=== PATIENT | male | born 1950 | race Caucasian/White ===

== ENCOUNTER → 2016-10-28 | Outpatient (CLI) | payer OTHER, MEDICARE ==
[~2016-10-28] MED LIST: ALBU17IN INH; ASPI81TA85 PO; CEFT250T8 PO; DEBR6.5S4 AU; DOXY100C PO; GLIP5TAB8 PO; LISI10TA4 PO; LOVA20TA2 PO; METF1000 PO; METO25TA74 PO; MUCI30TA2 PO; NASA0.053; PRAV1TAB39 PO
[2016-10-28 11:22] LABS: MEAN CORPUSCULAR HEMOGLOBIN 30.8 pg (27.0-33.0); MEAN CORPUSCULAR HGB CONC 33.7 g/dl (32.0-36.5); MEAN CORPUSCULAR VOLUME 91.5 fl (80.0-96.0); RED CELL DISTRIBUTION WIDTH 12.2 % (11.5-14.5); WHITE BLOOD COUNT 6.9 K/mm3 (4.0-10.0)
[2016-10-28 11:55] LABS: ALBUMIN 3.9 GM/DL (3.2-5.2); ALBUMIN/GLOBULIN RATIO 1.15 (1.00-1.93); ALKALINE PHOSPHATASE 109 U/L (45-117); ALT/SGPT 46 U/L (12-78); ANION GAP 8 MEQ/L (8-16); AST/SGOT 30 U/L (15-37); BILIRUBIN,TOTAL 0.3 MG/DL (0.2-1.0); BLOOD UREA NITROGEN 20 MG/DL (7-18); CALCIUM LEVEL 8.9 MG/DL (8.8-10.2); CARBON DIOXIDE LEVEL 33 MEQ/L (21-32); CHLORIDE LEVEL 100 MEQ/L (98-107); CREATININE FOR GFR 1.14 MG/DL (0.70-1.30); FERRITIN 27 NG/ML (26-388); GLOMERULAR FILTRATION RATE > 60.0 (>49); GLUCOSE, FASTING 68 MG/DL (80-110); MAGNESIUM LEVEL 1.8 MG/DL (1.8-2.4); POTASSIUM SERUM 4.1 MEQ/L (3.5-5.1); SODIUM LEVEL 141 MEQ/L (136-145); TOTAL PROTEIN 7.3 GM/DL (6.4-8.2)
== END ==
LOC: M LAB 10:58
PROVIDERS: ATTEND Nurse Practitioner Family
DX: K21.9 Gastro-esophageal reflux disease without esophagitis (principal); I10 Essential (primary) hypertension

== ENCOUNTER → 2017-02-04 | Outpatient (CLI) | payer OTHER, MEDICARE ==
[2017-02-04 09:05] LABS: ALBUMIN/GLOBULIN RATIO 1.25 (1.00-1.93); BILIRUBIN,TOTAL 0.4 MG/DL (0.2-1.0); CALCIUM LEVEL 8.5 MG/DL (8.8-10.2); CREATININE FOR GFR 1.42 MG/DL (0.70-1.30); GLOMERULAR FILTRATION RATE 53.3 (>49); POTASSIUM SERUM 4.8 MEQ/L (3.5-5.1); TOTAL PROTEIN 7.2 GM/DL (6.4-8.2)
== END ==
LOC: M LAB 08:22
PROVIDERS: ATTEND Nurse Practitioner Family
DX: I10 Essential (primary) hypertension (principal); E78.2 Mixed hyperlipidemia; E55.9 Vitamin D deficiency, unspecified

== ENCOUNTER → 2017-08-22 | Outpatient (CLI) | payer OTHER, MEDICARE ==
[~2017-08-22] MED LIST changes: -METF1000 PO; +METF10004 PO; +METO1TAB32 PO; -METO25TA74 PO; -MUCI30TA2 PO; +MUCI30TA5 PO
[2017-08-22 11:24] LABS: ALBUMIN/GLOBULIN RATIO 1.43 (1.00-1.93); ALKALINE PHOSPHATASE 82 U/L (45-117); ALT/SGPT 21 U/L (12-78); ANION GAP 8 MEQ/L (8-16); AST/SGOT 17 U/L (7-37); BILIRUBIN,TOTAL 0.4 MG/DL (0.2-1.0); BLOOD UREA NITROGEN 18 MG/DL (7-18); CALCIUM LEVEL 9.5 MG/DL (8.8-10.2); CARBON DIOXIDE LEVEL 29 MEQ/L (21-32); CHLORIDE LEVEL 102 MEQ/L (98-107); CHOLESTEROL LEVEL 177 MG/DL (<200); CREATININE FOR GFR 1.22 MG/DL (0.70-1.30); GLOMERULAR FILTRATION RATE > 60.0 (>49); GLUCOSE, FASTING 86 MG/DL (80-110); POTASSIUM SERUM 4.8 MEQ/L (3.5-5.1); SODIUM LEVEL 139 MEQ/L (136-145); TOTAL PROTEIN 6.8 GM/DL (6.4-8.2); TRIGLYCERIDES LEVEL 141 MG/DL (<150)
== END ==
LOC: M LAB 10:00
PROVIDERS: ATTEND Nurse Practitioner Family
DX: Z12.5 Encounter for screening for malignant neoplasm of prostate (principal); I10 Essential (primary) hypertension; E78.2 Mixed hyperlipidemia; E55.9 Vitamin D deficiency, unspecified
CPT/HCPCS: 36415; 80053; 80061; 82306; G0103

== ENCOUNTER → 2017-08-22 | Outpatient (CLI) | payer MEDICARE, OTHER ==
[2017-08-29 00:06] LABS: GAD-65 AUTOANTIBODY <5.0 U/mL (0.0-5.0)
== END ==
LOC: M LAB 09:57
PROVIDERS: ATTEND Nurse Practitioner Family
DX: Z00.00 Encounter for general adult medical examination without abnormal findings (principal); E11.9 Type 2 diabetes mellitus without complications; Z12.5 Encounter for screening for malignant neoplasm of prostate
CPT/HCPCS: 36415; 80053; 80061; 82306; 83519; 84681; G0103

== ENCOUNTER → 2017-11-22 | Outpatient (REF) | payer MEDICARE, OTHER ==
[2017-11-22 12:27] LABS: ALBUMIN 4.3 GM/DL (3.2-5.2); ALBUMIN/GLOBULIN RATIO 1.39 (1.00-1.93); ALKALINE PHOSPHATASE 124 U/L (45-117); ALT/SGPT 34 U/L (12-78); ANION GAP 9 MEQ/L (8-16); AST/SGOT 26 U/L (7-37); BILIRUBIN,TOTAL 0.3 MG/DL (0.2-1.0); BLOOD UREA NITROGEN 36 MG/DL (7-18); CALCIUM LEVEL 9.5 MG/DL (8.8-10.2); CARBON DIOXIDE LEVEL 28 MEQ/L (21-32); CHLORIDE LEVEL 102 MEQ/L (98-107); CHOLESTEROL LEVEL 84 MG/DL (<200); CHOLESTEROL RISK RATIO 1.909 (<5); CREATININE FOR GFR 1.23 MG/DL (0.70-1.30); GLOMERULAR FILTRATION RATE > 60.0 (>49); GLUCOSE, FASTING 71 MG/DL (70-100); HDL CHOLESTEROL 44 MG/DL (>40); LDL CHOLESTEROL 13.4 MG/DL (<100); NON-HDL-C 40 MG/DL; POTASSIUM SERUM 4.9 MEQ/L (3.5-5.1); SODIUM LEVEL 139 MEQ/L (136-145); TOTAL PROTEIN 7.4 GM/DL (6.4-8.2); TRIGLYCERIDES LEVEL 133 MG/DL (<150)
[2017-11-22 12:30] LABS: TOTAL 25(OH) VITAMIN D 46.1 NG/ML (30.0-100.0)
== END ==
LOC: M SFHCPLAZ 09:58
DX: I10 Essential (primary) hypertension (principal); E78.2 Mixed hyperlipidemia; E55.9 Vitamin D deficiency, unspecified
CPT/HCPCS: 80053

== ENCOUNTER → 2017-12-11 | Outpatient (REF) | payer MEDICARE, OTHER ==
[2017-12-11 18:37] LABS: APPEARANCE, URINE CLEAR (CLEAR); BACTERIA, URINE AUTO NEGATIVE (NEGATIVE); BILIRUBIN, URINE AUTO NEGATIVE (NEGATIVE); BLOOD, URINE BLOOD NEGATIVE (NEGATIVE); COLOR, URINE STRAW (YELLOW); GLUCOSE, URINE (UA) AUTO 3+ mg/dL (NEGATIVE); KETONE, URINE AUTO NEGATIVE (NEGATIVE); LEUKOCYTE ESTERASE, URINE AUTO NEGATIVE (NEGATIVE); NITRITE, URINE AUTO NEGATIVE (NEGATIVE); PROTEIN, URINE AUTO NEGATIVE (NEGATIVE); RBC, URINE AUTO 0 /HPF (0-3); SPECIFIC GRAVITY URINE AUTO 1.016 (1.002-1.035); SQUAMOUS EPITHELIAL CELL UR AU 0 /HPF (0-6); UROBILINOGEN, URINE AUTO 0.2 mg/dL (0.0-2.0); WBC, URINE AUTO 0 /HPF (0-3)
== END ==
LOC: M SMT 17:18
DX: R97.20 Elevated prostate specific antigen [PSA] (principal); Z79.899 Other long term (current) drug therapy
CPT/HCPCS: 81001

== ENCOUNTER → 2018-06-21 | Outpatient (REF) | payer MEDICARE, OTHER ==
[2018-06-22 15:36] LABS: PSA % FREE 32.3 % (.); PSA FREE 1.29 ng/mL
== END ==
LOC: M SFHCPLAZ 09:49
DX: R97.20 Elevated prostate specific antigen [PSA] (principal)
CPT/HCPCS: 84154

== ENCOUNTER → 2018-08-16 | Outpatient (CLI) | payer MEDICARE, OTHER ==
[2018-08-16 11:08] LABS: ALBUMIN 4.1 GM/DL (3.2-5.2); ALBUMIN/GLOBULIN RATIO 1.32 (1.00-1.93); ALKALINE PHOSPHATASE 102 U/L (45-117); ALT/SGPT 22 U/L (12-78); ANION GAP 5 MEQ/L (8-16); AST/SGOT 17 U/L (7-37); BILIRUBIN,TOTAL 0.3 MG/DL (0.2-1.0); BLOOD UREA NITROGEN 20 MG/DL (7-18); CALCIUM LEVEL 9.7 MG/DL (8.8-10.2); CARBON DIOXIDE LEVEL 31 MEQ/L (21-32); CHLORIDE LEVEL 100 MEQ/L (98-107); CHOLESTEROL LEVEL 199 MG/DL (<200); CHOLESTEROL RISK RATIO 4.234 (<5); CREATININE FOR GFR 1.37 MG/DL (0.70-1.30); FREE T4 0.93 NG/DL (0.76-1.46); GLOMERULAR FILTRATION RATE 55.2 (>49); GLUCOSE, FASTING 147 MG/DL (70-100); HDL CHOLESTEROL 47 MG/DL (>40); LDL CHOLESTEROL 109 MG/DL (<100); NON-HDL-C 152 MG/DL; POTASSIUM SERUM 5.4 MEQ/L (3.5-5.1); SODIUM LEVEL 136 MEQ/L (136-145); TOTAL PROTEIN 7.2 GM/DL (6.4-8.2); TRIGLYCERIDES LEVEL 215 MG/DL (<150)
[2018-08-16 11:09] LABS: TOTAL 25(OH) VITAMIN D 67.3 NG/ML (30.0-100.0)
== END ==
LOC: M LAB 09:59
DX: I10 Essential (primary) hypertension (principal); Z79.899 Other long term (current) drug therapy
CPT/HCPCS: 84443

== ENCOUNTER → 2019-01-01 | Outpatient (CLI) | payer MEDICARE, OTHER ==
[~2019-01-01] MED LIST changes: -NASA0.053; +NASA0.054
--- NOTE | 2019-01-01 14:27 | REP ---
SINUSES THREE VIEWS: HISTORY: Facial pain. There is no acute fracture or bone lesion. Mucosal thickening is present in the right maxillary sinus. The remaining sinuses are clear. IMPRESSION: Right maxillary sinus mucosal thickening. Electronically Signed by Neto Garcia MD 01/01/2019 02:31 P
== END ==
LOC: M SMT 13:02
PROVIDERS: ATTEND Nurse Practitioner Family
DX: J34.89 Other specified disorders of nose and nasal sinuses (principal); R51 Headache
CPT/HCPCS: 69209; 70220; G0463

== ENCOUNTER → 2019-01-04 | Outpatient (CLI) | payer MEDICARE, OTHER ==
--- NOTE | 2019-01-04 09:14 | REP ---
Clinical: Persistent headache . Comparison: 11/23/2015 . Findings: The ventricles, sulci, and cisterns are normal in position and appearance. Gould-white differentiation is maintained. No acute intracranial hemorrhage, mass/mass effect, pathology or trauma/injury. No evidence for acute infarction. No extra-axial fluid collection. Calvarium is intact. Mild/moderate mucoperiosteal changes involving the ethmoid and right sphenoid sinuses suggests sinusitis. Impression: Normal noncontrast head CT. Mild sinusitis. No evidence for acute intracranial pathology or trauma/injury. Electronically Signed by Piotr Zafar MD 01/04/2019 09:06 A
== END ==
LOC: M RAD 08:45
PROVIDERS: ATTEND Nurse Practitioner Family
DX: G44.52 New daily persistent headache (NDPH) (principal)

== ENCOUNTER → 2019-03-28 | Outpatient (REF) | payer MEDICARE, OTHER ==
[2019-03-31 15:13] LABS: ANTINUCLEAR ANTIBODIES DIRECT Negative (Negative)
== END ==
LOC: M LABDRAWP 13:55
PROVIDERS: ATTEND Psychiatry & Neurology Neurology
DX: R51 Headache (principal)

== ENCOUNTER → 2019-04-17 | Outpatient (REF) | payer MEDICARE, OTHER ==
[2019-04-17 18:21] LABS: MAU/CREAT RATIO 9.3 MCG/MG (0.0-30.0)
== END ==
LOC: M LABDRAWP 17:20
PROVIDERS: ATTEND Nurse Practitioner Family
DX: E11.9 Type 2 diabetes mellitus without complications (principal)

== ENCOUNTER → 2019-06-25 | Outpatient (REF) | payer MEDICARE, OTHER ==
[2019-06-25 17:51] LABS: ALBUMIN 3.9 GM/DL (3.2-5.2); BILIRUBIN,TOTAL 0.2 MG/DL (0.2-1.0); CALCIUM LEVEL 9.5 MG/DL (8.8-10.2); CHOLESTEROL RISK RATIO 2.191 (<5); CREATININE FOR GFR 1.57 MG/DL (0.70-1.30); FREE T4 0.85 NG/DL (0.76-1.46); POTASSIUM SERUM 5.1 MEQ/L (3.5-5.1); THYROID STIMULATING HORMONE 3.48 uIU/ML (0.358-3.740); TOTAL PROTEIN 7.1 GM/DL (6.4-8.2)
[2019-06-25 17:53] LABS: TOTAL 25(OH) VITAMIN D 40.1 NG/ML (30.0-100.0)
[2019-06-25 18:01] LABS: CREATININE, URINE 75.8 MG/DL; MALB URINE SIEMENS 7.5 MG/L; MAU/CREAT RATIO 9.8 MCG/MG (0.0-30.0)
== END ==
LOC: M SFHCPLAZ 15:15
PROVIDERS: ATTEND Nurse Practitioner Family
DX: I10 Essential (primary) hypertension (principal); E78.2 Mixed hyperlipidemia; E55.9 Vitamin D deficiency, unspecified; R97.20 Elevated prostate specific antigen [PSA]; Z79.899 Other long term (current) drug therapy; Z79.82 Long term (current) use of aspirin

== ENCOUNTER → 2019-09-09 | Outpatient (CLI) | payer MEDICARE, OTHER ==
[2019-09-11 14:08] LABS: PSA % FREE 35.2 % (.); PSA FREE 1.62 ng/mL; PSA TOTAL 4.6 ng/mL (0.0-4.0)
== END ==
LOC: M PLALAB 15:14
PROVIDERS: ATTEND Nurse Practitioner Women's Health
DX: R97.20 Elevated prostate specific antigen [PSA] (principal)

== ENCOUNTER → 2020-01-16 | Outpatient (REF) | payer MEDICARE, OTHER ==
[2020-01-16 12:24] LABS: BASO # 0.1 10^3/uL (0.0-0.2); BASO % 1.1 % (0.0-1.0); EOS # 1.4 10^3/uL (0.0-0.5); EOS % 16.9 % (0.0-3.0); HEMATOCRIT 39.6 % (42.0-52.0); HEMOGLOBIN 12.7 g/dl (13.5-17.5); LYMPH # 1.6 10^3/uL (1.5-5.0); LYMPH % 18.6 % (24.0-44.0); MEAN CORPUSCULAR HEMOGLOBIN 29.2 pg (27.0-33.0); MEAN CORPUSCULAR HGB CONC 32.1 g/dl (32.0-36.5); MONO # 0.7 10^3/uL (0.0-0.8); MONO % 8.8 % (0.0-5.0); NEUTROPHILS # 4.6 10^3/uL (1.5-8.5); NEUTROPHILS % 54.4 % (36.0-66.0); PLATELET COUNT, AUTOMATED 314 10^3/uL (150-450); RED BLOOD COUNT 4.35 10^6/uL (4.30-6.10); WHITE BLOOD COUNT 8.4 10^3/uL (4.0-10.0)
[2020-01-16 12:47] LABS: CHOLESTEROL RISK RATIO 1.807 (<5); PROSTATIC SPECIFIC AG MONITOR 2.81 NG/ML (< 4.00)
== END ==
LOC: M PLALAB 10:03
PROVIDERS: ATTEND Nurse Practitioner Women's Health
DX: J01.01 Acute recurrent maxillary sinusitis (principal); E78.2 Mixed hyperlipidemia; R97.20 Elevated prostate specific antigen [PSA]; E55.9 Vitamin D deficiency, unspecified; Z79.899 Other long term (current) drug therapy

== ENCOUNTER 2020-02-04 17:33 | Inpatient (IN) | payer MEDICARE, OTHER ==
[~2020-02-04 17:33] MED LIST changes: -ESCI10TA2 PO; -FINA5TAB2 PO; -OMEP-221 PO; -ROSU20TA5 PO; -SULF1TAB93 PO; -VENTAER INH
[2020-02-04] MEDS ORDERED: GLUCOSE 4GM CHEW TABLET PO PRN (17:45)
[2020-02-04] MEDS ORDERED: ACETAMINOPHEN TAB 650MG DOSE (2X325MG) PO PRN (17:45)
[2020-02-04] MEDS ORDERED: DEXTROSE 50% 50 ML SYRINGE IV PRN (17:45)
[2020-02-04] MEDS ORDERED: MOM 30ML SUSPENSION UDC PO PRN (17:45)
[2020-02-04] MEDS ORDERED: MAALOX 30 ML SUSP *UDC PO PRN (17:45)
[2020-02-04] MEDS ORDERED: GLUCAGON INJ 1MG VIAL SC PRN (17:45)
[2020-02-04 18:12] VITALS: BP 102/60
--- NOTE | 2020-02-04 19:17 | HPEPDOC ---
[facility] Medical History & Physical Date of Admission February 04, 2020 Date of Service: February 04, 2020 Attending Physician: LOLLY KRAMER MD History and Physical CHIEF COMPLAINT: Kidney injury, sent by PCP HISTORY OF PRESENT ILLNESS: Zhao Isabel is a 69-year-old male who presents today for direct admission after being seen today by Dr. Roberson at the [facility] clinic for ongoing upper respiratory symptoms and cough and was found to have acute kidney injury. He had been previously diagnosed with sinusitis about 2 weeks ago and started on Bactrim. He had follow-up today to discuss his ongoing symptoms. No new antibiotics were ordered and a chest x-ray was negative for pneumonia. Lab revealed MISBAH and hyperkalemia. His upper respiratory symptoms have been going on for at least the past month. He reports a cough that is only mildly productive of clear sputum. He also reports sinus pressure and bilateral maxillary sinuses, intermittent headaches, postnasal drip. He denies any fevers, chills, sweats, shortness of breath. He states he has never had an issue with his kidneys before that he is aware of. PAST MEDICAL HISTORY: 1. Diabetes Mellitus 2. HTN 3. HLD 4. CAD 5. SVT s/p ablation 6. GEMMA 7. GERD PAST SURGICAL HISTORY: 1. Appendectomy 2. Cardiac ablation 3. Prostate biopsy SOCIAL HISTORY: Never smoker, no alcohol use, no IV drug use. FAMILY HISTORY: Father: [place], heart disease Mother: diabetes mellitus ALLERGIES: Please see below. REVIEW OF SYSTEMS: CONSTITUTIONAL: Denies fevers, chills, night sweats, fatigue, unexpected change in weight. HEENT: Positive as noted in HPI. Denies change in vision, change in hearing. CARDIOVASCULAR: Denies chest pain, palpitations, shortness of breath, lightheadedness. RESPIRATORY: Endorses cough as noted in HPI. Denies dyspnea, wheezing. GASTROINTESTINAL: Denies nausea, vomiting, abdominal pain, diarrhea, constipation, blood in stool. GENITOURINARY: Denies dysuria, urinary frequency, urinary urgency. SKIN: Denies rash, lesions. MUSCULOSKELETAL: She is going denies new or worsening joint pains. NEUROLOGICAL: Denies headache, dizziness, weakness. PSYCHIATRIC: Denies change in mood. HOME MEDICATIONS: Please see below. PHYSICAL EXAMINATION: VITAL SIGNS: See below GENERAL: Alert, comfortable, in no acute distress HEENT: Normocephalic, atraumatic, PERRLA, EOMI, moist mucous membranes. Mild tenderness in bilateral maxillary sinuses. No tenderness over the frontal sinuses. Cobblestoning noted in the posterior pharynx, without exudates. NECK: Supple, trachea midline, no lymphadenopathy, no JVD CARDIOVASCULAR: Regular rate and rhythm, normal S1 and S2. No murmurs, rubs, or gallops RESPIRATORY: Rhonchorous upper airway sounds noted bilaterally without wheezing or rales. Remaining lung delacruz are clear to auscultation. ABDOMEN: Soft, nontender, nondistended, bowel sounds present EXTREMITIES: No cyanosis or edema. SKIN: No rash noted NEUROLOGIC: Alert and oriented 3 to person, place and time. No focal deficits appreciated PSYCHIATRIC: Mood and affect appropriate LABORATORY DATA: See below. ASSESSMENT: 69 year old male who presented for direct admission to the hospital for suspected drug-induced MISBAH secondary to Bactrim PLAN: 1. MISBAH secondary to AIN from Bactrim - discontinue Bactrim, hold home lisinopril, metformin, and omeprazole - recheck BMP now, EKG due to electrolyte imbalance - veltassa for hyperkalemia of 5.8 - hyponatremia, Na level 130 - IV fluids overnight, reassess based on morning labs 2. Sinusitis - discontinue bactrim due to above - consider treatment with doxycycline 3. Diabetes mellitus - hold home metformin and glipizide while inpatient - sliding scale insulin achs, hypoglycemia protocol 4. Hypertension - hold home lisinopril in the setting of MISBAH - if hypertensive, will treat 5. GERD - hold home omeprazole in the setting of MISBAH DVT prophylaxis: sc heparin GI prophylaxis: not indicated Disposition: inpatient PCU pending clinical improvement. Attending attestation: I evaluated and examined the patient in person; I discussed the care with Resident in detail and agree with the plan above. Home Medications Scheduled Aspirin (Aspir 81) 81 Mg Tab, 81 MG PO DAILY Escitalopram Oxalate (Escitalopram Oxalate) 10 Mg Tablet, 10 MG PO DAILY Finasteride (Finasteride) 5 Mg Tablet, 5 MG PO DAILY Glipizide (Glipizide) 5 Mg Tab, 5 MG PO BID Lisinopril (Lisinopril) 10 Mg Tab, 10 MG PO DAILY Metformin HCl (Metformin HCl) 1,000 Mg Tab, 1,000 MG PO BIDWM Rosuvastatin Calcium (Rosuvastatin Calcium) 20 Mg Tablet, 20 MG PO QHS Scheduled PRN Omeprazole (Omeprazole) 40 Mg Capsule.dr, 40 MG PO DAILY PRN for HEARTBURN/INDIGESTION Allergies Coded Allergies: Penicillins (Verified Allergy, Intermediate, RASH, 02/04/20) A-FIB/CHADSVASC A-FIB History Current/History of A-Fib/PAF?: No ABENA FARAH D.O. February 04, 2020 18:43 LOLLY KRAMER MD February 06, 2020 16:15
[2020-02-04 20:00] VITALS: BP 104/54
[2020-02-04] MEDS ORDERED: PATIROMER SORBITEX CALCIUM 8.4 GM POWDER PACKET (VELTASSA) PO ONE (20:00)
[2020-02-04] MEDS: NS 1,000 ML IV SCH (20:08)
[2020-02-04 20:21] LABS: CALCIUM LEVEL 7.8 MG/DL (8.8-10.2); CREATININE FOR GFR 2.5 MG/DL (0.70-1.30); GLOMERULAR FILTRATION RATE 27.5 (>49); POTASSIUM SERUM 5.8 MEQ/L (3.5-5.1)
[2020-02-04] MEDS: HumaLOG INSULIN (NovoLOG) PER UNIT SC SCH (20:21)
[2020-02-04] MEDS: HEPARIN SOD (PORCINE) 5000UNITS/ML VIAL (J1644 PER 1000UNITS) SC SCH (22:42)
[2020-02-04 23:00] LABS: TROPONIN I 0.22 NG/ML (< 0.10)
[2020-02-04 23:05] LABS: THYROID STIMULATING HORMONE 3.02 uIU/ML (0.358-3.740)
[2020-02-04 23:37] LABS: CREATININE FOR GFR 2.24 MG/DL (0.70-1.30); GLOMERULAR FILTRATION RATE 31.2 (>49); POTASSIUM SERUM 5.3 MEQ/L (3.5-5.1)
[2020-02-05] VITALS (7 sets, daily range): BP systolic 100–148; BP diastolic 57–68
[2020-02-05] MEDS ORDERED: ASPIRIN 81 MG CHEW TABLET PO ONE
[2020-02-05] MEDS ORDERED: SULF1TAB93 PO (00:22)
[2020-02-05] MEDS ORDERED: VENTAER INH (00:22)
[2020-02-05] MEDS ORDERED: ESCI10TA2 PO (00:22)
[2020-02-05] MEDS ORDERED: ROSU20TA5 PO (00:22)
[2020-02-05] MEDS ORDERED: FINA5TAB2 PO (00:22)
[2020-02-05] MEDS ORDERED: OMEP-221 PO (00:38)
[2020-02-05 04:47] LABS: HEMATOCRIT 30.2 % (42.0-52.0); HEMOGLOBIN 10.1 g/dl (13.5-17.5); MEAN CORPUSCULAR HEMOGLOBIN 29.2 pg (27.0-33.0); MEAN CORPUSCULAR HGB CONC 33.4 g/dl (32.0-36.5); MEAN CORPUSCULAR VOLUME 87.3 fl (80.0-96.0); PLATELET COUNT, AUTOMATED 241 10^3/uL (150-450); RED BLOOD COUNT 3.46 10^6/uL (4.30-6.10); WHITE BLOOD COUNT 7.2 10^3/uL (4.0-10.0)
[2020-02-05 05:20] LABS: CALCIUM LEVEL 8.5 MG/DL (8.8-10.2); GLOMERULAR FILTRATION RATE 35.5 (>49); TROPONIN I 0.28 NG/ML (< 0.10)
[2020-02-05] MEDS: NS 1,000 ML IV SCH (06:12)
[2020-02-05] MEDS: HEPARIN SOD (PORCINE) 5000UNITS/ML VIAL (J1644 PER 1000UNITS) SC SCH ×3 (06:15→20:59)
[2020-02-05] MEDS: HumaLOG INSULIN (NovoLOG) PER UNIT SC SCH ×4 (07:53→20:31)
[2020-02-05] MEDS: FINASTERIDE 5 MG TAB PO SCH (08:59)
[2020-02-05] MEDS: ESCITALOPRAM OXALATE 10 MG TAB (LEXAPRO) PO SCH (08:59)
[2020-02-05] MEDS: FLUTICASONE PROP 0.05% NASAL SPRAY 16 GM (FLONASE) NARES SCH (09:00)
--- NOTE | 2020-02-05 11:17 | IPNPDOC ---
Text Note Date of Service The patient was seen on 02/05/20. NOTE SUBJECTIVE: Patient states he is feeling about the same today as yesterday. He continues to have sinus pressure and drainage. No fevers/chills. He is urinating without difficulty. OBJECTIVE: PHYSICAL EXAMINATION: VITAL SIGNS: See below GENERAL: Alert, comfortable, in no acute distress HEENT: Normocephalic, atraumatic, PERRLA, EOMI, moist mucous membranes. Mild tenderness in bilateral maxillary sinuses. No tenderness over the frontal sinuses. Cobblestoning noted in the posterior pharynx, without exudates. NECK: Supple, trachea midline, no lymphadenopathy, no JVD CARDIOVASCULAR: Regular rate and rhythm, normal S1 and S2. No murmurs, rubs, or gallops RESPIRATORY: Rhonchorous upper airway sounds noted bilaterally without wheezing or rales. Remaining lung delacruz are clear to auscultation. ABDOMEN: Soft, nontender, nondistended, bowel sounds present EXTREMITIES: No cyanosis or edema. SKIN: No rash noted NEUROLOGIC: Alert and oriented 3 to person, place and time. No focal deficits appreciated PSYCHIATRIC: Mood and affect appropriate ASSESSMENT: 69 year old male who presented for direct admission to the hospital for suspected drug-induced MISBAH secondary to Bactrim PLAN: # MISBAH secondary to AIN from Bactrim - discontinue Bactrim, hold home lisinopril, metformin, and omeprazole - Cr improving, continue to monitor daily. d/c IV fluids, consider restarting if Cr increases again - given one dose of veltassa on admission for hyperkalemia, improved - continue telemetry # Cardiac arrhythmia - admission EKG reveals first degree AV block, hx of SVT s/p ablation, stable from 2015 EKG in [facility] - overnight he went into a second degree AV block, type 1 vs type 2 - changes likely due to electrolyte imbalance vs. worsening of underlying arrhythmia - troponin elevated, trend shows plateau. 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 VS,Fishbone, I+O VS, Fishbone, I+O Laboratory Tests 02/04/20 19:54 02/04/20 22:20 02/05/20 04:25 Vital Signs Date Time Temp Pulse Resp B/P (MAP) Pulse Ox O2 Delivery O2 Flow Rate FiO2 02/05/20 08:00 98.5 82 20 131/64 (86) 95 Room Air I&O- Last 24 Hours up to 6 AM 02/05/20 06:00 Intake Total 950 ml Output Total 1850 ml Balance -900 ml ABENA FARAH D.O. February 05, 2020 11:17
[2020-02-05] MEDS: IPRATROPIUM 0.5MG/ALBUTEROL 2.5MG INH SOL UD 3ML (DUONEB)(J7620) NEB SCH ×2 (13:56→19:30)
--- NOTE | 2020-02-05 21:03 | ECGEPIP ---
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 CONSIDER PRIOR INFERIOR INFARCT Compared to the 4 tracings done in 2014. In 1 of them there was one episode of Mobitz 1 second-degree AV block Electronically Signed on 02-05-2020 21:02:46 EDT by Manpreet Camara
--- NOTE | 2020-02-05 21:07 | ECGEPIP ---
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 CONSIDER PRIOR INFERIOR INFARCT INTRAVENTRICULAR CONDUCTION DELAY Compared to the 4 tracings done in 2014. In 1 of them there was one episode of Mobitz 1 second-degree AV block HEART RATE IS NOW SLOWER Electronically Signed on 02-05-2020 21:07:02 EDT by Manpreet Camara
--- NOTE | 2020-02-05 21:19 | ECHO ---
DATE OF PROCEDURE: 02/05/2020 Date of : 1950 Age: 69 Gender: Male Height: 68 inches Weight: 154 pounds Body surface area: 1.83 meters squared Inpatient: Progressive care unit (PCU), room 3222 REFERRING PHYSICIAN: Dr. Dayna Mendoza INDICATION: Cardiac dysrhythmias. MEASUREMENTS: 2D Measurements: RV: 4.0 cm LV: 4.2 cm Septum: 1.2 cm Posterior wall: 1.2 cm Aortic root: 3.6 cm LA: 4.2 cm LVEF: 75% Doppler Measurements: AV: 1.3 meters per second LVOT: 0.98 meters per second LVOT diameter: 2.0 cm MV-E: 113, A: 102, EA ratio: 1.1 Early mitral deceleration time: 250 milliseconds E prime medial: 7.7, A prime medial: 10, E prime lateral: 7.7. Average E/E prime ratio: 14.7/pulmonary capillary wedge pressure: 20 mmHg. PV: 0.9 meters per second Pulmonary artery acceleration time: 137 milliseconds RVSP: 31 mmHg IVC: 1.7 cm COMMENTS: Normal sinus rhythm without intraventricular conduction disturbance. M-mode and two-dimensional echocardiography was performed with pulsed, continuous wave, color flow and tissue Doppler studies. Borderline concentric left ventricular hypertrophy with hyperkinetic wall motion. Mildly dilated left atrium with grade 2 left ventricular (LV) diastolic dysfunction and elevated estimated mean left atrial pressure. Normal right heart chamber sizes and motion with Doppler evidence of borderline pulmonary hypertension. Normal inferior vena cava (IVC) size and collapse against an elevated central venous pressure. Normal aortic dimensions. Slightly thickened aortic cusps with normal cusp separation and no insufficiency. Mildly thickened mitral valvular apparatus without inflow tract obstruction but very mild to mild mitral insufficiency. Normal appearing tricuspid valve with very mild insufficiency. No apparent intracardiac mass or pericardial effusion.
[2020-02-06] MEDS: IPRATROPIUM 0.5MG/ALBUTEROL 2.5MG INH SOL UD 3ML (DUONEB)(J7620) NEB SCH ×4 (01:05→19:41)
[2020-02-06] MEDS: HEPARIN SOD (PORCINE) 5000UNITS/ML VIAL (J1644 PER 1000UNITS) SC SCH ×3 (05:17→21:03)
[2020-02-06 06:00] VITALS: BP 130/54
[2020-02-06 06:06] LABS: HEMATOCRIT 31.1 % (42.0-52.0); HEMOGLOBIN 10.5 g/dl (13.5-17.5); MEAN CORPUSCULAR HEMOGLOBIN 29.2 pg (27.0-33.0); MEAN CORPUSCULAR HGB CONC 33.8 g/dl (32.0-36.5); MEAN CORPUSCULAR VOLUME 86.6 fl (80.0-96.0); PLATELET COUNT, AUTOMATED 283 10^3/uL (150-450); RED BLOOD COUNT 3.59 10^6/uL (4.30-6.10)
[2020-02-06 06:28] LABS: CALCIUM LEVEL 8.6 MG/DL (8.8-10.2); CREATININE FOR GFR 1.45 MG/DL (0.70-1.30); GLOMERULAR FILTRATION RATE 51.5 (>49); POTASSIUM SERUM 5.6 MEQ/L (3.5-5.1)
[2020-02-06] MEDS: ESCITALOPRAM OXALATE 10 MG TAB (LEXAPRO) PO SCH (08:32)
[2020-02-06] MEDS: FINASTERIDE 5 MG TAB PO SCH (08:32)
[2020-02-06] MEDS: HumaLOG INSULIN (NovoLOG) PER UNIT SC SCH ×4 (08:33→20:57)
[2020-02-06] MEDS: FLUTICASONE PROP 0.05% NASAL SPRAY 16 GM (FLONASE) NARES SCH (08:34)
[2020-02-06] MEDS ORDERED: PATIROMER SORBITEX CALCIUM 8.4 GM POWDER PACKET (VELTASSA) PO ONE (11:00)
[2020-02-06 12:46] LABS: CALCIUM LEVEL 8.8 MG/DL (8.8-10.2); CREATININE FOR GFR 1.33 MG/DL (0.70-1.30); GLOMERULAR FILTRATION RATE 56.9 (>49); POTASSIUM SERUM 5.3 MEQ/L (3.5-5.1)
[2020-02-06 14:00] VITALS: BP 130/60
--- NOTE | 2020-02-06 17:00 | IPNPDOC ---
Text Note Date of Service The patient was seen on 02/06/20. NOTE SUBJECTIVE: Patient states he is feeling better this morning. He states his sinus pressure and drainage is improved. He denies fevers/chills. No trouble urinating or dark urine. OBJECTIVE: PHYSICAL EXAMINATION: VITAL SIGNS: See below GENERAL: Alert, comfortable, in no acute distress HEENT: Normocephalic, atraumatic, PERRLA, EOMI, moist mucous membranes. Mild tenderness in bilateral maxillary sinuses. No tenderness over the frontal sinuses. Cobblestoning noted in the posterior pharynx, without exudates. NECK: Supple, trachea midline, no lymphadenopathy, no JVD CARDIOVASCULAR: Regular rate and rhythm, normal S1 and S2. No murmurs, rubs, or gallops RESPIRATORY: Rhonchorous upper airway sounds noted bilaterally without wheezing or rales. Remaining lung delacruz are clear to auscultation. ABDOMEN: Soft, nontender, nondistended, bowel sounds present EXTREMITIES: No cyanosis or edema. SKIN: No rash noted NEUROLOGIC: Alert and oriented 3 to person, place and time. No focal deficits appreciated PSYCHIATRIC: Mood and affect appropriate ASSESSMENT: 69 year old male who presented for direct admission to the hospital for suspected drug-induced MISBAH secondary to Bactrim PLAN: # MISBAH secondary to AIN from Bactrim - discontinue Bactrim, hold home lisinopril, metformin, and omeprazole - Cr improving, continue to monitor daily. s/p IV fluids, consider restarting if Cr increases again - given one dose of veltassa on admission for hyperkalemia, improved. give a second dose today due to recurrent hyperkalemia. # Cardiac arrhythmia - admission EKG reveals first degree AV block, hx of SVT s/p ablation, stable from 2014 EKG in [facility] - overnight he went into a second degree AV block, type 1 vs type 2 - changes likely due to electrolyte imbalance vs. worsening of underlying arrhythmia - troponin elevated, trend shows plateau. echocardiogram shows grade 2 diastolic dysfunction. 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 viral vs. bacterial - discontinue Bactrim due to above - symptoms improving with flonase spray # Diabetes mellitus - hold home metformin and glipizide while inpatient - sliding scale insulin achs, hypoglycemia protocol # Hypertension - hold home lisinopril in the setting of MISBAH # GERD - hold home omeprazole in the setting of MISBAH DVT prophylaxis: sc heparin GI prophylaxis: not indicated Disposition: likely d/c home in the next 24-48 hours VS,Sumeetbone, I+O VS, Fishbone, I+O Laboratory Tests 02/06/20 05:22 02/06/20 11:51 Vital Signs Date Time Temp Pulse Resp B/P (MAP) Pulse Ox O2 Delivery O2 Flow Rate FiO2 02/06/20 14:00 98.1 78 16 130/60 (83) 94 Room Air I&O- Last 24 Hours up to 6 AM 02/06/20 06:00 Intake Total 2340 ml Output Total 1950 ml Balance 390 ml ABENA FARAH D.O. February 06, 2020 17:00
[2020-02-06 22:00] VITALS: BP 133/66
[2020-02-07] MEDS: IPRATROPIUM 0.5MG/ALBUTEROL 2.5MG INH SOL UD 3ML (DUONEB)(J7620) NEB SCH ×4 (00:30→19:44)
[2020-02-07] MEDS: HEPARIN SOD (PORCINE) 5000UNITS/ML VIAL (J1644 PER 1000UNITS) SC SCH ×3 (05:51→21:39)
[2020-02-07 06:00] VITALS: BP 135/65
[2020-02-07 06:56] LABS: HEMATOCRIT 33.4 % (42.0-52.0); HEMOGLOBIN 10.9 g/dl (13.5-17.5); MEAN CORPUSCULAR HGB CONC 32.6 g/dl (32.0-36.5); MEAN CORPUSCULAR VOLUME 88.8 fl (80.0-96.0); PLATELET COUNT, AUTOMATED 366 10^3/uL (150-450); RED BLOOD COUNT 3.76 10^6/uL (4.30-6.10); WHITE BLOOD COUNT 6.3 10^3/uL (4.0-10.0)
[2020-02-07 07:14] LABS: BLOOD UREA NITROGEN 25 MG/DL (7-18); CALCIUM LEVEL 8.8 MG/DL (8.8-10.2); CARBON DIOXIDE LEVEL 28 MEQ/L (21-32); CHLORIDE LEVEL 104 MEQ/L (98-107); CREATININE FOR GFR 1.18 MG/DL (0.70-1.30); GLOMERULAR FILTRATION RATE > 60.0 (>49); GLUCOSE, FASTING 154 MG/DL (70-100); POTASSIUM SERUM 5.4 MEQ/L (3.5-5.1); SODIUM LEVEL 136 MEQ/L (136-145)
[2020-02-07] MEDS: FLUTICASONE PROP 0.05% NASAL SPRAY 16 GM (FLONASE) NARES SCH (08:44)
[2020-02-07] MEDS: ESCITALOPRAM OXALATE 10 MG TAB (LEXAPRO) PO SCH (08:44)
[2020-02-07] MEDS: FINASTERIDE 5 MG TAB PO SCH (08:44)
[2020-02-07] MEDS: HumaLOG INSULIN (NovoLOG) PER UNIT SC SCH ×4 (08:45→21:40)
[2020-02-07] MEDS ORDERED: PATIROMER SORBITEX CALCIUM 8.4 GM POWDER PACKET (VELTASSA) PO ONE (12:00)
[2020-02-07 14:00] VITALS: BP 146/65
--- NOTE | 2020-02-07 15:08 | IPNPDOC ---
Text Note Date of Service The patient was seen on 02/07/20. NOTE SUBJECTIVE: Patient states he is feeling well this morning. He has not had any sinus pressure or congestion, no fevers/chills. No dark urine or trouble urinating. OBJECTIVE: PHYSICAL EXAMINATION: VITAL SIGNS: See below GENERAL: Alert, comfortable, in no acute distress HEENT: Normocephalic, atraumatic, PERRLA, EOMI, moist mucous membranes. Mild tenderness in bilateral maxillary sinuses. No tenderness over the frontal sinuses. Cobblestoning noted in the posterior pharynx, without exudates. NECK: Supple, trachea midline, no lymphadenopathy, no JVD CARDIOVASCULAR: Regular rate and rhythm, normal S1 and S2. No murmurs, rubs, or gallops RESPIRATORY: Rhonchorous upper airway sounds noted bilaterally without wheezing or rales. Remaining lung delacruz are clear to auscultation. ABDOMEN: Soft, nontender, nondistended, bowel sounds present EXTREMITIES: No cyanosis or edema. SKIN: No rash noted NEUROLOGIC: Alert and oriented 3 to person, place and time. No focal deficits appreciated PSYCHIATRIC: Mood and affect appropriate ASSESSMENT: 69 year old male who presented for direct admission to the hospital for suspected drug-induced MISBAH secondary to Bactrim PLAN: # MISBAH secondary to AIN from Bactrim - discontinue Bactrim, hold home lisinopril, metformin, and omeprazole - Cr improving, continue to monitor daily. s/p IV fluids, consider restarting if Cr increases again - given one dose of veltassa on admission for hyperkalemia, improved. give two subsequent daily doses due to recurrent hyperkalemia. # Cardiac arrhythmia - admission EKG reveals first degree AV block, hx of SVT s/p ablation, stable from 2014 EKG in [facility] - overnight he went into a second degree AV block, type 1 vs type 2 - changes likely due to electrolyte imbalance vs. worsening of underlying ar rhythmia - troponin elevated, trend shows plateau. echocardiogram shows grade 2 diastolic dysfunction. 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 viral vs. bacterial - discontinue Bactrim due to above - symptoms improving with flonase spray # Diabetes mellitus - hold home metformin and glipizide while inpatient - sliding scale insulin achs, hypoglycemia protocol # Hypertension - hold home lisinopril in the setting of MISBAH # GERD - hold home omeprazole in the setting of MISBAH DVT prophylaxis: sc heparin GI prophylaxis: not indicated Disposition: likely d/c home in the next 24-48 hours VS,Norrise, I+O VS, Fishbone, I+O Laboratory Tests 02/07/20 05:57 02/07/20 13:54 Vital Signs Date Time Temp Pulse Resp B/P (MAP) Pulse Ox O2 Delivery O2 Flow Rate FiO2 02/07/20 06:00 98.5 66 18 135/65 (88) 94 Room Air l I&O- Last 24 Hours up to 6 AM 02/07/20 06:00 Intake Total 3290 ml Balance 3290 ml ABENA FARAH D.O. February 07, 2020 15:08
[2020-02-07] MEDS ORDERED: IPRATROPIUM 0.5MG/ALBUTEROL 2.5MG INH SOL UD 3ML (DUONEB)(J7620) NEB PRN (18:15)
[2020-02-07 22:00] VITALS: BP 124/88
[2020-02-08] MEDS ORDERED: IPRATROPIUM 0.5MG/ALBUTEROL 2.5MG INH SOL UD 3ML (DUONEB)(J7620) NEB PRN (00:15)
[2020-02-08] MEDS: IPRATROPIUM 0.5MG/ALBUTEROL 2.5MG INH SOL UD 3ML (DUONEB)(J7620) NEB SCH ×2 (01:03→07:56)
[2020-02-08] MEDS: HEPARIN SOD (PORCINE) 5000UNITS/ML VIAL (J1644 PER 1000UNITS) SC SCH (05:42)
[2020-02-08 06:00] VITALS: BP 133/82
[2020-02-08 06:41] LABS: HEMATOCRIT 34.3 % (42.0-52.0); HEMOGLOBIN 11.6 g/dl (13.5-17.5); MEAN CORPUSCULAR HEMOGLOBIN 29.6 pg (27.0-33.0); MEAN CORPUSCULAR HGB CONC 33.8 g/dl (32.0-36.5); MEAN CORPUSCULAR VOLUME 87.5 fl (80.0-96.0); PLATELET COUNT, AUTOMATED 446 10^3/uL (150-450); RED BLOOD COUNT 3.92 10^6/uL (4.30-6.10); WHITE BLOOD COUNT 7.9 10^3/uL (4.0-10.0)
[2020-02-08 07:09] LABS: BLOOD UREA NITROGEN 28 MG/DL (7-18); CALCIUM LEVEL 8.7 MG/DL (8.8-10.2); CARBON DIOXIDE LEVEL 28 MEQ/L (21-32); CHLORIDE LEVEL 104 MEQ/L (98-107); CREATININE FOR GFR 1.21 MG/DL (0.70-1.30); GLOMERULAR FILTRATION RATE > 60.0 (>49); GLUCOSE, FASTING 134 MG/DL (70-100); POTASSIUM SERUM 5.3 MEQ/L (3.5-5.1); SODIUM LEVEL 137 MEQ/L (136-145)
[2020-02-08] MEDS: FINASTERIDE 5 MG TAB PO SCH (08:29)
[2020-02-08] MEDS: ESCITALOPRAM OXALATE 10 MG TAB (LEXAPRO) PO SCH (08:29)
[2020-02-08] MEDS: FLUTICASONE PROP 0.05% NASAL SPRAY 16 GM (FLONASE) NARES SCH (08:30)
[2020-02-08] MEDS: HumaLOG INSULIN (NovoLOG) PER UNIT SC SCH (08:30)
--- NOTE | 2020-02-08 11:30 | DS.PDOC ---
Discharge Summary General Date of Admission February 04, 2020 at 17:36 Date of Discharge 02/08/20 Attending Physician: LOLLY KRAMER MD Discharge Summary PROCEDURES PERFORMED DURING STAY: None. ADMITTING DIAGNOSES: 1. Acute kidney injury, hyperkalemia. DISCHARGE DIAGNOSES: 1. Acute kidney injury, hyperkalemia. COMPLICATIONS/CHIEF COMPLAINT: Sea,Hyperkalemia. HISTORY OF PRESENT ILLNESS: 69-year-old male was admitted for acute kidney injury and hyperkalemia secondary to Bactrim toxicity. Patient was treated with Bactrim for 10-14 days prior to arrival for an upper respiratory tract infection. Patient was treated with IV hydration and nephrotoxic medications were held with resolution of acute kidney injury. Patient was given Patiromer with improvement in hyperkalemia, continues to have persistent slight elevation in potassium, recheck today in EDTA free tubing and potassium is 4.9. Patient's lisinopril has been discontinued, will be discharged with close outpatient follo w-up with primary care physician and control panel operator crude unit. Patient is given a prescription for repeat BMP in 3-5 days. Patient is agreeable to this plan, hemodynamically stable for discharge at this time. HOSPITAL COURSE: As above. DISCHARGE MEDICATIONS: Please see below. ALLERGIES: Please see below. PHYSICAL EXAMINATION: VITAL SIGNS: Please see below. GENERAL: No distress HEENT: Normocephalic, atraumatic, moist mucous membranes NECK: Supple CARDIOVASCULAR EXAMINATION: S1, S2, no murmurs RESPIRATORY EXAMINATION: Clear to auscultation, no wheezing ABDOMINAL EXAMINATION: Soft, nontender, nondistended, positive bowel sounds EXTREMITIES: Range of motion intact SKIN: No rash NEUROLOGICAL EXAMINATION: Alert and oriented 3, no focal deficits PSYCHIATRIC EXAMINATION: Calm and cooperative LABORATORY DATA: Please see below. PROGNOSIS: Fair ACTIVITY: As tolerated. DIET: Cardiac DISCHARGE PLAN: Follow with PCP and control panel operator crude unit DISPOSITION: Home. DISCHARGE INSTRUCTIONS: 1. As above. DISCHARGE CONDITION: Stable. TIME SPENT ON DISCHARGE: Greater than 26 minutes. Vital Signs/I&Os Vital Signs Date Time Temp Pulse Resp B/P (MAP) Pulse Ox O2 Delivery O2 Flow Rate FiO2 02/08/20 06:00 99.0 69 16 133/82 (99) 97 Room Air I&O- Last 24 Hours up to 6 AM 02/08/20 06:00 Intake Total 2090 ml Output Total 2975 ml Balance -885 ml Laboratory Data Labs 24H Laboratory Tests 2 02/07/20 11:28: Bedside Glucose (Misc Panel) 210H 02/07/20 16:30: Bedside Glucose (Misc Panel) 211H 02/07/20 20:53: Bedside Glucose (Misc Panel) 421H 02/08/20 06:26: Nucleated Red Blood Cells % (auto) 0.0, Anion Gap 5L, Glomerular Filtration Rate > 60.0, Calcium Level 8.7L 02/08/20 08:44: Osmolality 298 02/08/20 11:16: Bedside Glucose (Misc Panel) 211H CBC/BMP Laboratory Tests 02/07/20 13:54 02/08/20 06:26 02/08/20 08:44 FSBS Laboratory Tests Test 02/07/20 11:28 02/07/20 16:30 02/07/20 20:53 02/08/20 11:16 Range/Units Bedside Glucose (Misc Panel) 210 211 421 211 80-115 MG/DL Discharge Medications Scheduled Aspirin (Aspir 81) 81 Mg Tab, 81 MG PO DAILY, (Reported) Escitalopram Oxalate (Escitalopram Oxalate) 10 Mg Tablet, 10 MG PO DAILY, (Reported) Finasteride (Finasteride) 5 Mg Tablet, 5 MG PO DAILY, (Reported) Glipizide (Glipizide) 5 Mg Tab, 5 MG PO BID, (Reported) Lisinopril (Lisinopril) 10 Mg Tab, 10 MG PO DAILY, (Reported) Metformin HCl (Metformin HCl) 1,000 Mg Tab, 1,000 MG PO BIDWM, (Reported) Rosuvastatin Calcium (Rosuvastatin Calcium) 20 Mg Tablet, 20 MG PO QHS, (Reported) Scheduled PRN Omeprazole (Omeprazole) 40 Mg Capsule.dr, 40 MG PO DAILY PRN for HEARTBURN/INDIGESTION, (Reported) Allergies Coded Allergies: Penicillins (Verified Allergy, Intermediate, RASH, 02/04/20) LOLLY KRAMER MD February 08, 2020 11:30
[2020-02-09] MEDS ORDERED: ENOXAPARIN 40MG/0.4ML SYRINGE (J1650 PER 10MG) SC SCH (09:00)
== END 2020-02-08 12:25 | disposition home or self-care (01) | DRG 683 ==
LOC: M PCU 17:36 → M MSPAV 02-05 16:36
PROVIDERS: ADMIT Internal Medicine; ATTEND Internal Medicine
DX: N17.9 Acute kidney failure, unspecified (principal); E87.1 Hypo-osmolality and hyponatremia; T36.8X5A Adverse effect of other systemic antibiotics, initial encounter; E87.5 Hyperkalemia; J32.9 Chronic sinusitis, unspecified; Z79.899 Other long term (current) drug therapy; Z79.82 Long term (current) use of aspirin; Z88.0 Allergy status to penicillin; E11.9 Type 2 diabetes mellitus without complications; G47.33 Obstructive sleep apnea (adult) (pediatric); K21.9 Gastro-esophageal reflux disease without esophagitis; I10 Essential (primary) hypertension

== ENCOUNTER → 2020-02-04 | Outpatient (REF) | payer MEDICARE, OTHER ==
[~2020-02-04] MED LIST changes: +ESCI10TA2 PO; +FINA5TAB2 PO; +OMEP-221 PO; +ROSU20TA5 PO; +SULF1TAB93 PO; +VENTAER INH
[2020-02-04 13:25] LABS: BASO % 0.3 % (0.0-1.0); EOS # 1.2 10^3/uL (0.0-0.5); EOS % 18.9 % (0.0-3.0); HEMATOCRIT 32.5 % (42.0-52.0); LYMPH # 0.7 10^3/uL (1.5-5.0); LYMPH % 11.2 % (24.0-44.0); MEAN CORPUSCULAR HEMOGLOBIN 29.9 pg (27.0-33.0); MEAN CORPUSCULAR HGB CONC 33.8 g/dl (32.0-36.5); MEAN CORPUSCULAR VOLUME 88.3 fl (80.0-96.0); MONO # 0.9 10^3/uL (0.0-0.8); MONO % 14.5 % (0.0-5.0); NEUTROPHILS # 3.5 10^3/uL (1.5-8.5); NEUTROPHILS % 54.8 % (36.0-66.0); PLATELET COUNT, AUTOMATED 234 10^3/uL (150-450); RED BLOOD COUNT 3.68 10^6/uL (4.30-6.10); WHITE BLOOD COUNT 6.4 10^3/uL (4.0-10.0)
[2020-02-04 13:31] LABS: CALCIUM LEVEL 8.2 MG/DL (8.8-10.2); CREATININE FOR GFR 2.55 MG/DL (0.70-1.30); GLOMERULAR FILTRATION RATE 26.9 (>49); POTASSIUM SERUM 5.9 MEQ/L (3.5-5.1)
== END ==
LOC: M SFHCPLAZ 12:00
PROVIDERS: ATTEND Family Medicine
DX: R05 Cough (principal)

== ENCOUNTER → 2020-02-04 | Outpatient (CLI) | payer MEDICARE, OTHER ==
--- NOTE | 2020-02-04 16:14 | REPPI ---
REASON FOR EXAM: Cough. The latest prior for comparison is portable examination of 10/30/2014. FINDINGS: The superior mediastinal structures are midline. The cardiac silhouette is unremarkable in size, shape, and position. The diaphragmatic surfaces of the lungs are regular, and the costophrenic angles are clear. The pulmonary delacruz are clear. The imaged osseous structures are intact. IMPRESSION: There is no acute cardiopulmonary disease. The lung delacruz are hypo expanded. This crowds the basilar vascularity. Electronically Signed by Kaleb Greco DO 02/04/2020 04:30 P
== END ==
LOC: M PLAIMG 12:01
PROVIDERS: ATTEND Family Medicine
DX: R05 Cough (principal)

== ENCOUNTER → 2020-02-12 | Outpatient (CLI) | payer MEDICARE, OTHER ==
[~2020-02-12] MED LIST changes: +ESCI10TA2 PO; +FINA5TAB2 PO; +OMEP-221 PO; +ROSU20TA5 PO; +SULF1TAB93 PO; +VENTAER INH
[2020-02-12 10:02] LABS: ALBUMIN 3.4 GM/DL (3.2-5.2); ALT/SGPT 88 U/L (12-78); BILIRUBIN,TOTAL 0.4 MG/DL (0.2-1.0); BLOOD UREA NITROGEN 28 MG/DL (7-18); CALCIUM LEVEL 8.6 MG/DL (8.8-10.2); CARBON DIOXIDE LEVEL 32 MEQ/L (21-32); CHLORIDE LEVEL 103 MEQ/L (98-107); CHOLESTEROL LEVEL 76 MG/DL (<200); CHOLESTEROL RISK RATIO 2.235 (<5); CREATININE FOR GFR 1.25 MG/DL (0.70-1.30); GLOMERULAR FILTRATION RATE > 60.0 (>49); GLUCOSE, FASTING 173 MG/DL (70-100); HDL CHOLESTEROL 34 MG/DL (>40); LDL CHOLESTEROL 23 MG/DL (<100); NON-HDL-C 42 MG/DL; POTASSIUM SERUM 5.1 MEQ/L (3.5-5.1); SODIUM LEVEL 137 MEQ/L (136-145); TRIGLYCERIDES LEVEL 97 MG/DL (<150)
[2020-02-12 10:11] LABS: MALB URINE SIEMENS 35.8 MG/L; MAU/CREAT RATIO 28.8 MCG/MG (0.0-30.0)
== END ==
LOC: M LAB 08:54
PROVIDERS: ATTEND Nurse Practitioner Family
DX: E11.9 Type 2 diabetes mellitus without complications (principal)

== ENCOUNTER → 2020-02-12 | Outpatient (CLI) | payer MEDICARE, OTHER ==
[2020-02-12 11:33] LABS: BLOOD UREA NITROGEN 29 MG/DL (7-18); CALCIUM LEVEL 8.4 MG/DL (8.8-10.2); CARBON DIOXIDE LEVEL 30 MEQ/L (21-32); CHLORIDE LEVEL 102 MEQ/L (98-107); CREATININE FOR GFR 1.19 MG/DL (0.70-1.30); GLOMERULAR FILTRATION RATE > 60.0 (>49); GLUCOSE, FASTING 168 MG/DL (70-100); POTASSIUM SERUM 5.1 MEQ/L (3.5-5.1); SODIUM LEVEL 136 MEQ/L (136-145)
== END ==
LOC: M LAB 08:59
PROVIDERS: ATTEND Internal Medicine
DX: E11.9 Type 2 diabetes mellitus without complications (principal)

== ENCOUNTER → 2020-03-22 | Outpatient (REF) | payer MEDICARE, OTHER ==
[2020-03-22 13:01] LABS: ALT/SGPT 27 U/L (12-78); BILIRUBIN,TOTAL 0.4 MG/DL (0.2-1.0); BLOOD UREA NITROGEN 15 MG/DL (7-18); CALCIUM LEVEL 9.5 MG/DL (8.8-10.2); CARBON DIOXIDE LEVEL 31 MEQ/L (21-32); CHLORIDE LEVEL 101 MEQ/L (98-107); CREATININE FOR GFR 1.12 MG/DL (0.70-1.30); GLOMERULAR FILTRATION RATE > 60.0 (>49); GLUCOSE, FASTING 191 MG/DL (70-100); POTASSIUM SERUM 4.7 MEQ/L (3.5-5.1); SODIUM LEVEL 136 MEQ/L (136-145); TOTAL PROTEIN 7.3 GM/DL (6.4-8.2)
== END ==
LOC: M PLALAB 09:29
PROVIDERS: ATTEND Nurse Practitioner Family
DX: N17.9 Acute kidney failure, unspecified (principal)

== ENCOUNTER → 2020-07-25 | Outpatient (CLI) | payer MEDICARE, OTHER ==
[~2020-07-25] MED LIST changes: +ASPI325T57 PO; -ASPI81TA85 PO; +ASPI81TA86 PO; +JARD1TAB PO; +MULT-6 PO
== END ==
LOC: M LABSMTC 09:26
PROVIDERS: ATTEND Anesthesiology
DX: Z01.812 Encounter for preprocedural laboratory examination (principal); Z20.828 Contact with and (suspected) exposure to other viral communicable diseases
CPT/HCPCS: C9803; U0003

== ENCOUNTER 2020-07-30 08:08 | Day surgery (SDC) | payer MEDICARE, OTHER ==
[~2020-07-30] VITALS: Ht 172.7 cm; Wt 73.9 kg
[~2020-07-30 08:08] MED LIST changes: +LIDOCAINE 2% 100MG/5ML SDV (FOR ANES.) As Ordered ONE; -MULT-6 PO; +NS 1,000 ML IV ONE; +propofoL 200 MG/20 ML VIAL As Ordered ONE
[2020-07-30 08:25] VITALS: BP 186/74
[2020-07-30] MEDS ORDERED: MULT-6 PO (10:31)
--- NOTE | 2020-07-30 17:46 | ECGEPIP ---
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 Left axis deviation - rule out prior IWMI Low voltages with persistent S wave V5 and V6; body habitus versus pulmonary d disease. Progressive AV block from prior tracing 02/05/20 Electronically Signed on 07-30-2020 17:46:41 EDT by Micheal Stevens
== END 2020-07-30 08:25 | disposition home or self-care (01) ==
LOC: M OPP 08:08
PROVIDERS: ATTEND Internal Medicine Gastroenterology
DX: Z86.010 Personal history of colon polyps (principal); Z53.09 Procedure and treatment not carried out because of other contraindication

== ENCOUNTER 2020-07-30 09:35 | Observation (INO) | payer MEDICARE, OTHER ==
[~2020-07-30] VITALS: Ht 172.7 cm; Wt 66.0 kg
[~2020-07-30 09:35] MED LIST changes: -LIDOCAINE 2% 100MG/5ML SDV (FOR ANES.) As Ordered ONE; -NS 1,000 ML IV ONE; -propofoL 200 MG/20 ML VIAL As Ordered ONE
[2020-07-30] MEDS ORDERED: ATROPINE SULF 1MG/10ML SYRINGE (J0461) As Ordered ONE (09:53)
[2020-07-30] MEDS ORDERED: NS 1,000 ML IV SCH (10:00)
--- NOTE | 2020-07-30 10:05 | REP ---
INDICATION: CHEST PAIN. COMPARISON: Comparison chest x-ray October 30, 2014.. TECHNIQUE: Upright AP view. FINDINGS: Monitoring electrodes are seen. Lungs are symmetrically aerated and free of infiltrate. Cardiomediastinal silhouette is unremarkable. No significant bony abnormality. Pulmonary vasculature is not increased. IMPRESSION: No active disease. <Electronically signed by Chinmay Fuchs > 07/30/20 1002
[2020-07-30 10:10] LABS: BASO # 0.1 10^3/uL (0.0-0.2); BASO % 0.6 % (0.0-1.0); EOS # 0.9 10^3/uL (0.0-0.5); HEMATOCRIT 40.1 % (42.0-52.0); HEMOGLOBIN 12.7 g/dl (13.5-17.5); LYMPH # 1.9 10^3/uL (1.5-5.0); LYMPH % 18.4 % (24.0-44.0); MEAN CORPUSCULAR HEMOGLOBIN 28.5 pg (27.0-33.0); MEAN CORPUSCULAR HGB CONC 31.7 g/dl (32.0-36.5); MEAN CORPUSCULAR VOLUME 90.1 fl (80.0-96.0); MONO # 0.8 10^3/uL (0.0-0.8); MONO % 8.2 % (0.0-5.0); NEUTROPHILS # 6.5 10^3/uL (1.5-8.5); NEUTROPHILS % 63.4 % (36.0-66.0); PLATELET COUNT, AUTOMATED 297 10^3/uL (150-450); RED BLOOD COUNT 4.45 10^6/uL (4.30-6.10); WHITE BLOOD COUNT 10.2 10^3/uL (4.0-10.0)
[2020-07-30 10:21] LABS: INR 0.95; PROTHROMBIN TIME 12.9 SECONDS (12.5-14.3)
[2020-07-30 10:22] LABS: PARTIAL THROMBOPLASTIN TIME 28.1 SECONDS (24.2-38.5)
[2020-07-30] MEDS ORDERED: MULT-6 PO (10:31)
[2020-07-30 10:42] LABS: ALBUMIN 3.8 GM/DL (3.2-5.2); BILIRUBIN,DIRECT 0.1 MG/DL (0.0-0.2); BILIRUBIN,TOTAL 0.4 MG/DL (0.2-1.0); FREE T4 0.98 NG/DL (0.76-1.46); MAGNESIUM LEVEL 2.6 MG/DL (1.8-2.4); THYROID STIMULATING HORMONE 2.83 uIU/ML (0.358-3.740); TOTAL PROTEIN 6.6 GM/DL (6.4-8.2)
[2020-07-30] MEDS ORDERED: AMIODARONE 150MG/3ML INJ (J0282) As Ordered ONE (11:18)
[2020-07-30] MEDS ORDERED: LIDOCAINE 1% SDV 30ML VIAL As Ordered ONE (11:18)
[2020-07-30] MEDS ORDERED: ISOVUE-300 61% 50ML VIAL As Ordered ONE (11:18)
[2020-07-30] MEDS ORDERED: fentaNYL 100 MCG/2 ML INJECTION (J3010) As Ordered ONE (11:38)
[2020-07-30] MEDS ORDERED: propofoL 200 MG/20 ML VIAL As Ordered ONE (11:39)
[2020-07-30] MEDS ORDERED: MIDAZOLAM INJ 2MG/2ML VIAL (J2250 PER 1MG) As Ordered ONE (11:45)
[2020-07-30] MEDS ORDERED: ceFAZolin 2 GM/D5W 50 ML IV BAG (J0690 PER 500MG) As Ordered ONE (12:13)
[2020-07-30] MEDS ORDERED: MOM 30ML SUSPENSION UDC PO PRN (13:30)
[2020-07-30] MEDS ORDERED: ACETAMINOPHEN TAB 650MG DOSE (2X325MG) PO PRN (13:30)
[2020-07-30] MEDS ORDERED: ONDANSETRON 4MG/2ML VIAL IV PRN (13:45)
[2020-07-30] MEDS ORDERED: LR 1,000 ML IV SCH (13:45)
[2020-07-30] MEDS ORDERED: fentaNYL 100 MCG/2 ML INJECTION (J3010) IV PRN (13:45)
--- NOTE | 2020-07-30 13:49 | REP ---
INDICATION: S/P PACEMAKER INSERTION. COMPARISON: 07/30/2028 at 9:51 a.m.. TECHNIQUE: Single frontal portable view of the chest is performed. FINDINGS: There is no acute infiltrate or pulmonary edema. Heart mediastinum are unchanged. Left 2 lead pacemaker appears in good position. There is no pneumothorax. IMPRESSION: There is no acute infiltrate or pulmonary edema. Left 2 lead pacemaker appears in good position. <Electronically signed by Mike Gould > 07/30/20 [id number]
[2020-07-30 14:34] VITALS: BP 165/80
[2020-07-30] MEDS ORDERED: SLF 3 ML SYR IV PRN (16:15)
--- NOTE | 2020-07-30 17:48 | ECGEPIP ---
[facility] Test Date: 2020-07-30 Pat Name: YAYO DYER Department: Room: - Gender: Male Computed Tomography Technologist: TRISTAN : 1950 Requested By: Micheal Stevens Order Number: [id number] Reading MD: Micheal Stevens Measurements Intervals [place] Rate: 83 P: 135 [place]: 212 QRS: -61 QRSD: 168 T: 87 QT: 446 QTc: 526 Interpretive Statements AV sequentially paced rhythm EKG taken during atrial pacing threshold test showing loss of atrial capture and consistent ventricular pacing. Paced QRS complexes with left axis and LEFT BUNDLE BRANCH BLOCK configuration in keeping with RV apical stimulation. Pacemaker new from earlier the same day. Electronically Signed on 07-30-2020 17:48:21 EDT by Micheal Stevens
[2020-07-30 20:00] VITALS: BP 160/75
[2020-07-30 21:00] VITALS: BP 148/64
[2020-07-30] MEDS ORDERED: OMEPRAZOLE 20 MG CAP PO SCH (21:00)
[2020-07-30] MEDS ORDERED: FINASTERIDE 5 MG TAB PO SCH (21:00)
[2020-07-30] MEDS ORDERED: ROSUVASTATIN 10 MG TAB (CRESTOR) PO SCH (21:00)
[2020-07-30] MEDS: ceFAZolin SOD 1 GM in D5W MINI-BAG PLUS 50 ML IV SCH (21:10)
[2020-07-30] MEDS: SLF 3 ML SYR IV SCH (21:10)
[2020-07-30] MEDS ORDERED: HumaLOG INSULIN (NovoLOG) PER UNIT SC ONE (23:00)
[2020-07-31] VITALS: BP 150/74
[2020-07-31 04:00] VITALS: BP 119/80
[2020-07-31] MEDS: ceFAZolin SOD 1 GM in D5W MINI-BAG PLUS 50 ML IV SCH ×2 (04:59→11:53)
[2020-07-31] MEDS: SLF 3 ML SYR IV SCH ×2 (06:10→13:55)
--- NOTE | 2020-07-31 07:29 | ECGEPIP ---
[facility] - ED Test Date: 2020-07-30 Pat Name: YAYO DYER Department: Room: - Gender: Male Survival Specialist: JEFFREY : 1950 Requested By: Henrik Wood Order Number: [id number] Reading MD: Isaias Jauregui Measurements Intervals [place] Rate: 33 P: NM: 0 QRS: -36 QRSD: 89 T: 5 QT: 503 QTc: 374 Interpretive Statements SINUS BRADYCARDIA WITH 2ND DEGREE AV BLOCK, MOBITZ TYPE II LEFT AXIS DEVIATION PATTERN CONSISTENT WITH PULMONARY DISEASE SIMILAR TO PRIOR ON SAME DATE Electronically Signed on 07-31-2020 7:29:52 EDT by Isaias Jauregui
[2020-07-31 07:58] VITALS: BP 139/76
[2020-07-31] MEDS ORDERED: metFORMIN (GLUCOPHAGE) 1000 MG TABLET PO SCH (08:00)
--- NOTE | 2020-07-31 08:19 | REP ---
INDICATION: Post pacemaker implant. COMPARISON: Comparison portable chest x-ray July 30, 2020. TECHNIQUE: Two views.. FINDINGS: The lungs are well inflated and free of infiltrate. The pleural angles are sharp. The heart size is normal. Pulmonary vasculature is not increased. No significant bony abnormality is seen. Pacemaker power plant is seen in the left subclavicular soft tissues with adjacent skin wayne. Dual leads are noted in the right heart as before. There is no evidence of pneumothorax. There is mild gaseous distention of the transverse colon in the upper abdomen. IMPRESSION: No active disease. Pacemaker in place.. <Electronically signed by Chinmay Fuchs > 07/31/20 0231
[2020-07-31] MEDS ORDERED: ESCITALOPRAM OXALATE 10 MG TAB (LEXAPRO) PO SCH (09:00)
[2020-07-31 12:00] VITALS: BP 132/83
--- NOTE | 2020-08-01 09:27 | ECGEPIP ---
[facility] Test Date: 2020-07-31 Pat Name: YAYO DYER Department: Room: [place] [address] Gender: Male Hospital Fellow: BRIAN : 1950 Requested By: Mciheal Stevens Order Number: [id number] Reading MD: Micheal Stevens Measurements Intervals [place] Rate: 66 P: 81 [place]: 193 QRS: -68 QRSD: 174 T: 33 QT: 461 QTc: 485 Interpretive Statements Normal sinus rhythm Dual-chamber pacemaker with atrial sensing and tracking with consistent v ventricular pacing. Paced QRS complexes with leftward axis and left bundle branch block consistent w with RV apical stimulation. No change from 07/30/20 Electronically Signed on 08-01-2020 9:27:01 EST by Micheal Stevens
--- NOTE | 2020-08-02 11:46 | RO ---
DATE OF OPERATION: 07/30/2020 PROCEDURE: Implantation of permanent dual chamber pacemaker. 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 * Abnormal electrocardiogram (EKG). * History of paroxysmal supraventricular tachycardia (PSVT) post radiofrequency ablation 2011. POSTOPERATIVE DIAGNOSES: 1. High-grade atrioventricular (AV) block (2:1 AV conduction with heart rate in the 30s). 2. Abnormal electrocardiogram (EKG). 3. History of paroxysmal supraventricular tachycardia (PSVT) post radiofrequency ablation 2011. TYPE OF ANESTHESIA: Monitored local anesthesia. 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 EKGs dating back to February 05, 2020 have documented at least first-degree AV block with intermittent second-degree AV block Mobitz type I but rates averaging in the 50s presented for followup colonoscopy with prior history of colonic polyps, vital signs prior to his procedure today showed a heart rate of 30 beats per minute with EKG documenting underlying sinus rhythm with 2:1 AV conduction and rates averaging 34 beats per minute, where the patient was not receiving any negative chronotropic therapy. My cardiology service was requested following ER evaluation. The patient does admit to having increasing ease of fatigue and sleepiness the past few months but has actually never fallen or lost consciousness. Limited by dyspnea/fatigue, denies chest pain. He has no awareness of his heart action. DESCRIPTION OF EXAMINATION: Pleasant, alert, late middle-aged male laying comfortably with the head of the bed elevated 30 degrees. Heart rate 34 beats per minute and regular, blood pressure 136/56, respiratory rate 16 per minute, O2 saturation 94% on room air. Afebrile. Weight 162 pounds, height 66 inches, BMI 26. Afebrile. No pallor or cyanosis. Normal oral moisture. Trachea midline. Neck veins did not appear to be elevated. No thyromegaly. Slightly increased anterior/posterior chest diameter with adequate air entry of both lungs with no inspiratory rales but slight prolongation of expiration with no audible rhonchi. Apical impulse not palpable. Heart sounds are somewhat distant but no audible gallops or murmurs. Normal carotid upstrokes with increased volume. No bruits. Soft abdomen. No lower leg edema. Pedal pulses were symmetrically decreased but present. Chest x-ray taken in the Emergency Room this morning showed heart size upper limits of normal for this technique. Normal-appearing thoracic aorta and pulmonary vasculature. Slightly increased interstitial markings but no localized infiltrate or pleural effusion. EKG as mentioned above. LABORATORY DATA: Hemoglobin 12.7 with a white blood cell count of 10.2 thousand, normal platelet count. Normal PT/INR and PTT. Electrolytes were normal with a BUN 15, creatinine 1.1. Magnesium level was marginally elevated at 2.6. Troponin I level was negative. Pro-BNP level was normal. Glucose was 115. DESCRIPTION OF PROCEDURE: With the patient having been fasting for his tentative colonoscopy and following informed consent and Ancef 2 gm IV premedication, the patient was taken to the operating theatre. He had self- adhesive cardioverting/defibrillating/pacing leads positioned while in the Emergency Room. He was taken to the operating theatre and connected to a bedside EKG, blood pressure, and O2 saturation monitoring system. Multiple chest leads were placed to facilitate continuous electrocardiographic monitoring. His chest patches were connected to a bedside cardioverter defibrillator/noninvasive pacing system. The left subclavian region was prepped and draped in the usual fashion and the skin was infiltrated with 1% Xylocaine. The left axillary vein was catheterized using the Seldinger technique. A 5 cm linear incision was made several cm below and parallel to the left clavicle. Dissection was carried down to the level of the pectoralis fascia and a pocket was fashioned below the left incision line. Two bipolar screw-in active fixation steroid-eluting pacing leads were then positioned to the mid right ventricular septum and the high right atrial appendage under fluoroscopic and electrocardiographic control. The right ventricular lead ([employer] model number [id number], serial number [id number]) measurements were focal and stimulation thresholds 0.4 volts/0.4 ms/impedance 804 ohms. The R wave amplitude measured 4.0 mV. The atrial lead ([employer] model number [id number], serial number [id number]) measurements were focal and stimulation 0.7 V/0.4 ms/impedance 442 ohms. The P wave amplitude measured 4.7 mV. These pacing leads were then secured in position with the sleeve sutured at the insertion site. They were then connected to a dual chamber pulse generator ([employer] MRI compatible model number [id number], serial number [id number]) and appropriate DDD pacing was documented. The pulse generator was then placed in the pocket and secured in position with a suture through the right upper end corner of the epoxy header. The subcutaneous tissues were approximated using a running chromic suture and the skin was closed using wayne. A dry dressing was applied and the patient was returned to the recovery room in good condition. Estimated blood loss 10 mL. No apparent complications. Postoperative portal upright chest x-ray confirmed appropriate lead position with no pneumothorax. Postoperative EKG showed underlying sinus rhythm with atrial sensing and tracking with consistent ventricular pacing. Paced QRS complexes having a left axis with LBVB configuration. Our plan is to monitor the patient overnight while he receives an additional three doses of Ancef IV every 8 hours. A followup PA and left lateral chest x- ray will be obtained in the morning along with an EKG but we would anticipate his discharge by midday. Unfortunately, because of time commitments Dr. Khan, his counselor camp, was not able to proceed with his planned colonoscopy. This will be rescheduled for an alternate date. NEELAM
--- NOTE | 2020-08-02 12:59 | IPN ---
DATE: 07/31/2020 SUBJECTIVE: The patient has been up in the room without lightheadedness. Does report some incisional tenderness following his pacemaker implant yesterday but remains free of other chest discomfort. Feels more energetic with his physiologic heart rate rather than his 30 beats per minute yesterday. Has been free of any lightheadedness or dizziness. OBJECTIVE: Late middle-aged male of medium body build laying comfortably with the head of the bed elevated at 30 degrees. Current heart rate is 68 beats per minute and regular. Blood pressure 132/83, respiratory rate 18, O2 saturation 95% on 1 liter per minute, oxygen supplement by nasal prongs, afebrile. Weight is 146 pounds, height 68 inches, BMI 22. No pallor or cyanosis. No oral moisture. Bright and alert. Trachea midline. Thyroid not enlarged. Neck veins were normal. Normal chest expansion. His incision appears to be healing well with minimal localized erythema but no ecchymosis at this time. His dressing was changed. [place] and left lateral chest x-ray: Study performed today was reviewed independently and showed heart size upper limits of normal with stable lead position and no pneumothorax. EKG today shows normal sinus rhythm at 66 BPM with appropriate pacer sensing of atrial activity and tracking with consistent ventricular pacing. Paced QRS complexes, having a left axis and LBB configuration unchanged from yesterdays tracing. monitoring specialist: Appropriate pacer function has been documented. Pacer interrogation: Complete pacer interrogation was performed today ([employer] Assurity MRI compatible 8945). Atrial pacing threshold 0.75 at 0.4 msec, atrial intracardiac electrogram 3.7 mV and ventricular pacing threshold 0.625 V at 0.4 msec and intrinsic R wave 10.0 mV. His low rate pacing rate has been set at 70, his device is programmed DDD with upper tracking rate 110 BPM. Anticipated battery longevity is more than 11 years. IMPRESSION/PLAN: 1. Complete heart block: Has had gradually worsening AV conduction over the past few years, currently has single intrinsic beat with testing set rate at 30 beats per minute. His incision appears to be healing well with EKG confirming stable lead position and chest x-ray showing no pneumothorax. At this point, we will allow him to go home but have requested he perform only light activities of daily living with his left arm until his wayne are removed in our office in 7 to 10 days. We have also encouraged him to avoid driving for the next week. Should he notice any abnormal erythema, swelling or discharge, we have encouraged him to contact our office promptly. 2. With respect to his tentative colonoscopy, he has been asked to contact Dr. Khan for further arrangements. We have encouraged him to continue to follow a modest salt, low fat and low cholesterol diet. His medications will continue the same: Metformin 1 gram b.i.d., omeprazole 20 mg q.h.s., Rosuvastatin 20 mg q.h.s., finasteride 5 mg daily, and Escitalopram 10 mg daily with his Empagliflozin 10 mg daily and aspirin 325 mg daily. I have spoken directly with his regarding his restrictions and tentative follow-up plans. She has been encouraged to contact us should she have any questions. NEELAM
== END 2020-07-31 15:49 | disposition home or self-care (01) ==
LOC: M ED 09:35 → M SDC 10:35 → M PCU 14:34
PROVIDERS: ADMIT Internal Medicine Cardiovascular Disease; ATTEND Internal Medicine Cardiovascular Disease
DX: I44.2 Atrioventricular block, complete (principal); R94.31 Abnormal electrocardiogram [ECG] [EKG]; E11.9 Type 2 diabetes mellitus without complications; E78.49 Other hyperlipidemia; J45.909 Unspecified asthma, uncomplicated; K21.9 Gastro-esophageal reflux disease without esophagitis; F32.9 Major depressive disorder, single episode, unspecified; Z85.46 Personal history of malignant neoplasm of prostate; Z88.0 Allergy status to penicillin
CPT/HCPCS: 33208; 71045; 71046; 76000; 80047; 80076; 83605; 83690; 83735; 83880; 84439; 84443; 84484; 85025; 85610; 85730; 93005; 93041; 94760; 96361; 96365; 96366; 99285; C1785; C1898; G0378; J0690; J2250; J3010; Q9967

== ENCOUNTER → 2020-08-17 | Outpatient (CLI) | payer MEDICARE, OTHER ==
[~2020-08-17] MED LIST changes: +MULT-6 PO
[2020-08-17 18:09] LABS: BLOOD UREA NITROGEN 29 MG/DL (7-18); CALCIUM LEVEL 9.5 MG/DL (8.8-10.2); CARBON DIOXIDE LEVEL 30 MEQ/L (21-32); CHLORIDE LEVEL 100 MEQ/L (98-107); CREATININE FOR GFR 1.21 MG/DL (0.70-1.30); GLOMERULAR FILTRATION RATE > 60.0 (>49); GLUCOSE, FASTING 206 MG/DL (70-100); POTASSIUM SERUM 4.6 MEQ/L (3.5-5.1); SODIUM LEVEL 137 MEQ/L (136-145)
== END ==
LOC: M PLALAB 15:35
PROVIDERS: ATTEND Internal Medicine Endocrinology, Diabetes & Metabolism
DX: E11.9 Type 2 diabetes mellitus without complications (principal)

== ENCOUNTER → 2020-09-14 | Outpatient (REF) | payer MEDICARE, OTHER ==
[2020-09-14 18:01] LABS: CALCIUM LEVEL 9.7 MG/DL (8.8-10.2); CREATININE FOR GFR 1.27 MG/DL (0.70-1.30); GLOMERULAR FILTRATION RATE 59.9 (>49); PROSTATIC SPECIFIC AG MONITOR 2.28 NG/ML (< 4.00)
== END ==
LOC: M PLALAB 14:58
PROVIDERS: ATTEND Nurse Practitioner Family
DX: I10 Essential (primary) hypertension (principal); R97.20 Elevated prostate specific antigen [PSA]

== ENCOUNTER → 2021-01-06 | Outpatient (REF) | payer MEDICARE, OTHER ==
[~2021-01-06] MED LIST changes: +ESCI10TA16 PO; -ESCI10TA2 PO; +LISI10TA22 PO; -LISI10TA4 PO
[2021-01-06 14:37] LABS: ALBUMIN 4.1 GM/DL (3.2-5.2); ALT/SGPT 32 U/L (12-78); BILIRUBIN,TOTAL 0.4 MG/DL (0.2-1.0); BLOOD UREA NITROGEN 22 MG/DL (7-18); CALCIUM LEVEL 9.8 MG/DL (8.8-10.2); CARBON DIOXIDE LEVEL 29 MEQ/L (21-32); CHLORIDE LEVEL 103 MEQ/L (98-107); CHOLESTEROL LEVEL 119 MG/DL (<200); CHOLESTEROL RISK RATIO 2.203 (<5); CREATININE FOR GFR 1.16 MG/DL (0.70-1.30); GLOMERULAR FILTRATION RATE > 60.0 (>49); GLUCOSE, FASTING 97 MG/DL (70-100); HDL CHOLESTEROL 54 MG/DL (>40); LDL CHOLESTEROL 45 MG/DL (<100); NON-HDL-C 65 MG/DL; POTASSIUM SERUM 4.5 MEQ/L (3.5-5.1); SODIUM LEVEL 138 MEQ/L (136-145); TOTAL PROTEIN 7.3 GM/DL (6.4-8.2); TRIGLYCERIDES LEVEL 98 MG/DL (<150)
== END ==
LOC: M PLALAB 10:08
PROVIDERS: ATTEND Nurse Practitioner Family
DX: I10 Essential (primary) hypertension (principal); E78.2 Mixed hyperlipidemia

== ENCOUNTER → 2021-02-04 | Outpatient (CLI) | payer MEDICARE, OTHER ==
[~2021-02-04] MED LIST changes: +BACTDSTA PO; -SULF1TAB93 PO
--- NOTE | 2021-02-04 16:16 | REP ---
INDICATION: R22.9 SKIN NODULE. COMPARISON: None. TECHNIQUE: Real-time sonographic evaluation of right upper arm soft tissues performed at the site of a palpable lump. FINDINGS: There is a subcutaneous oval solid appearing nodule which is hypoechoic in echotexture measuring 9 x 4 x 11 mm. There is internal blood flow with Doppler evaluation. IMPRESSION: At the site of the palpable lump in the right upper arm there is a subcutaneous solid nodule which is a nonspecific finding. Differential diagnosis would include benign and malignant neoplasm. <Electronically signed by Mike Gould > 02/04/21 [id number]
== END ==
LOC: M WHC 15:24
PROVIDERS: ATTEND Family Medicine
DX: R22.31 Localized swelling, mass and lump, right upper limb (principal)

== ENCOUNTER → 2021-03-01 | Outpatient (REF) | payer MEDICARE, OTHER | LOC: M LAB REF 19:09 | PROVIDERS: ATTEND Surgery | DX: D18.09 Hemangioma of other sites (principal) ==

== ENCOUNTER → 2021-03-08 | Outpatient (REF) | payer MEDICARE, OTHER | LOC: M SMT 17:01 | PROVIDERS: ATTEND Nurse Practitioner Women's Health | DX: R97.20 Elevated prostate specific antigen [PSA] (principal) ==

== ENCOUNTER → 2021-04-25 | Outpatient (CLI) | payer MEDICARE, OTHER ==
[~2021-04-25] MED LIST changes: +ACAR25TA2; -DOXY100C PO; +DOXY100C3 PO; +LEXA1TAB
--- NOTE | 2021-04-25 16:13 | REP ---
INDICATION: INGUINAL PAIN, TESTICULAR SWELLING. COMPARISON: None. TECHNIQUE: Examination at rest and with Valsalva maneuver of the inguinal canals. FINDINGS: There is bilateral peritoneal fat noted protruding into the right and left inguinal canal. No bowel herniation. No mass otherwise. On transverse projection the right inguinal canal has a 22 mm focus at rest and with Valsalva 25 mm. Sagittal projection on the right shows an 8 mm thickness peritoneal fat and 9 mm on Valsalva maneuver. On transverse projection the left inguinal canal has a transverse diameter of 10 mm at rest, and 14 mm with Valsalva. Sagittal projection the left shows a peritoneal fat measuring 12 mm at rest, 16 mm with Valsalva. The peritoneal fat projecting into the inguinal canals is not reducible. It is larger on the right than left in transverse diameter, smaller in sagittal diameter right than left. IMPRESSION: Bilateral inguinal canals with peritoneal fat seen extending into each side, not reducible. No bowel herniation. See details above. <Electronically signed by Scott Jennings > 04/25/21 1132
--- NOTE | 2021-04-25 16:13 | REP ---
INDICATION: INGUINAL PAIN, TESTICULAR SWELLING. COMPARISON: None. TECHNIQUE: High-resolution bilateral scrotal sonography. FINDINGS: High-resolution bilateral scrotal ultrasound shows no evidence of intra testicular mass lesion on either side. There is a large left-sided hydrocele noted. No evidence of intratesticular mass lesion is seen. The left testis measures 2.6 x 2.4 x 2.7 cm. Right testicular dimensions are 3.2 x 2.1 x 2.6 cm. Epididymal structures are unremarkable. Doppler flow is preserved in both testes. Resistive indices by Doppler are measured at 0.50 on the right and 0.66 on the left. IMPRESSION: Large left-sided hydrocele. No evidence of intratesticular mass or torsion. <Electronically signed by Chinmay Fuchs > 04/25/21 [id number]
== END ==
LOC: M RAD 14:28
PROVIDERS: ATTEND Physician Assistant
DX: N43.3 Hydrocele, unspecified (principal); N50.812 Left testicular pain; N50.89 Other specified disorders of the male genital organs; R10.32 Left lower quadrant pain
CPT/HCPCS: 76857; 76870; 93976; G0463

== ENCOUNTER → 2021-05-14 | Outpatient (CLI) | payer MEDICARE, OTHER | LOC: M LABSMTC 11:00 | PROVIDERS: ATTEND Anesthesiology | DX: Z01.812 Encounter for preprocedural laboratory examination (principal); Z20.822 Contact with and (suspected) exposure to COVID-19 ==

== ENCOUNTER 2021-05-19 08:12 | Day surgery (SDC) | payer MEDICARE, OTHER ==
[~2021-05-19] VITALS: Ht 172.7 cm; Wt 68.7 kg
[~2021-05-19 08:12] MED LIST changes: +LIDOCAINE 2% 100MG/5ML SDV (FOR ANES.) As Ordered ONE; +NS 1,000 ML IV ONE; +propofoL 200 MG/20 ML VIAL As Ordered ONE
--- NOTE | 2021-05-19 10:18 | ROOR ---
Patient Name: Zhao Isabel Procedure Date: 05/19/2021 10:07 AM Date of : 1950 Age: 71 Room: [facility] Gender: Male Note Status: Finalized Procedure: Colonoscopy Indications: High risk colon cancer surveillance: Personal history of colonic polyps Providers: Alden Khan MD Referring MD: Kristina Calzada NP Requesting Provider: Medicines: Monitored Anesthesia Care Complications: No immediate complications. Procedure: Pre-Anesthesia Assessment: - The heart rate, respiratory rate, oxygen saturations, blood pressure, adequacy of pulmonary ventilation, and response to care were monitored throughout the procedure. The Colonoscope was introduced through the anus with the intention of advancing to the cecum. The scope was advanced to the transverse colon before the procedure was aborted. Medications were given. The colonoscopy was performed with difficulty due to poor bowel prep with stool present. The patient tolerated the procedure well. The quality of the bowel preparation was poor. Findings: The perianal and digital rectal examinations were normal. (Colon Prep was POOR, Inadequate Visualisation) Impression: - (Colon Prep was POOR, Inadequate Visualisation) -No obstructing lesions to transverse colon. Incomplete exam. - No specimens collected. Recommendation: - Repeat colonoscopy at the next available appointment because the bowel preparation was suboptimal. - My office will call you within the next few days to reschedule a colonoscopy with alternate colon preparation. Procedure Code(s): --- Professional --- 26010, 53, Colonoscopy, flexible; diagnostic, including collection of specimen(s) by brushing or washing, when performed (separate procedure) Diagnosis Code(s): --- Professional --- Z86.010, Personal history of colonic polyps CPT copyright 2019 [employer]. All rights reserved. The codes documented in this report are preliminary and upon professor of spanish review may be revised to meet current compliance requirements. Alden Khan MD Alden Khan MD 05/19/2021 10:18:28 AM Electronically signed by Alden Khan MD Number of Addenda: 0 Note Initiated On: 05/19/2021 10:07 AM Estimated Blood Loss: Estimated blood loss: none.
[2021-05-19 10:45] VITALS: BP 123/67
== END 2021-05-19 10:47 | disposition home or self-care (01) ==
LOC: M OPP 08:12
PROVIDERS: ATTEND Internal Medicine Gastroenterology
DX: Z12.11 Encounter for screening for malignant neoplasm of colon (principal); Z86.010 Personal history of colon polyps; Z79.82 Long term (current) use of aspirin; Z79.84 Long term (current) use of oral hypoglycemic drugs; Z79.899 Other long term (current) drug therapy; Z88.0 Allergy status to penicillin; Z88.1 Allergy status to other antibiotic agents; Z88.8 Allergy status to other drugs, medicaments and biological substances; Z95.0 Presence of cardiac pacemaker

== ENCOUNTER → 2021-07-22 | Outpatient (REF) | payer MEDICARE, OTHER ==
[~2021-07-22] MED LIST changes: -LIDOCAINE 2% 100MG/5ML SDV (FOR ANES.) As Ordered ONE; -NS 1,000 ML IV ONE; -propofoL 200 MG/20 ML VIAL As Ordered ONE
[2021-07-22 18:01] LABS: CREATININE, URINE 44.6 MG/DL; MALB URINE SIEMENS 8.9 MG/L; MAU/CREAT RATIO 19.9 MCG/MG (0.0-30.0)
== END ==
LOC: M LAB REF 16:59
PROVIDERS: ATTEND Nurse Practitioner Family
DX: E11.9 Type 2 diabetes mellitus without complications (principal)

== ENCOUNTER → 2021-09-19 | Outpatient (CLI) | payer MEDICARE, OTHER ==
[~2021-09-19] MED LIST changes: -ACAR25TA2; +ACAR25TA2 PO; -LEXA1TAB; +LEXA1TAB PO; -OMEP-221 PO; +OMEP40CA5 PO
== END ==
LOC: M PLALAB 10:45
PROVIDERS: ATTEND Nurse Practitioner Women's Health
DX: R97.20 Elevated prostate specific antigen [PSA] (principal)

== ENCOUNTER → 2021-10-03 | Outpatient (CLI) | payer MEDICARE, OTHER ==
[~2021-10-03] MED LIST changes: +OMEP-221 PO; -OMEP40CA5 PO
== END ==
LOC: M LABSMTC 12:34
PROVIDERS: ATTEND Anesthesiology
DX: Z01.812 Encounter for preprocedural laboratory examination (principal); Z20.822 Contact with and (suspected) exposure to COVID-19

== ENCOUNTER 2021-10-07 06:51 | Day surgery (SDC) | payer MEDICARE, OTHER ==
[~2021-10-07] VITALS: Ht 172.7 cm; Wt 70.5 kg
[~2021-10-07 06:51] MED LIST changes: +NS 1,000 ML IV ONE
[2021-10-07] MEDS ORDERED: SIMETHICONE 40MG/0.6ML DROPS 30ML As Ordered ONE (07:15)
[2021-10-07] MEDS ORDERED: LIDOCAINE 2% 100MG/5ML SDV (FOR ANES.) As Ordered ONE (07:15)
[2021-10-07] MEDS ORDERED: propofoL 200 MG/20 ML VIAL As Ordered ONE (07:15)
[2021-10-07 09:15] VITALS: BP 131/76
== END 2021-10-07 09:28 | disposition home or self-care (01) ==
LOC: M OPP 06:51
PROVIDERS: ATTEND Internal Medicine Gastroenterology
DX: Z12.11 Encounter for screening for malignant neoplasm of colon (principal); Z86.010 Personal history of colon polyps; D12.3 Benign neoplasm of transverse colon; K57.30 Diverticulosis of large intestine without perforation or abscess without bleeding; K64.8 Other hemorrhoids; Z79.82 Long term (current) use of aspirin; Z79.84 Long term (current) use of oral hypoglycemic drugs; Z79.899 Other long term (current) drug therapy; Z88.0 Allergy status to penicillin; Z88.1 Allergy status to other antibiotic agents; Z88.5 Allergy status to narcotic agent; Z95.0 Presence of cardiac pacemaker

== ENCOUNTER → 2021-10-24 | Outpatient (CLI) | payer MEDICARE, OTHER ==
[~2021-10-24] MED LIST changes: -NS 1,000 ML IV ONE; -OMEP-221 PO; +OMEP40CA5 PO
== END ==
LOC: M PLALAB 12:24
PROVIDERS: ATTEND Nurse Practitioner Women's Health
DX: R97.20 Elevated prostate specific antigen [PSA] (principal)

== ENCOUNTER → 2022-01-20 | Outpatient (CLI) | payer MEDICARE, OTHER ==
[2022-01-20 13:27] LABS: BASO # 0.1 10^3/uL (0.0-0.2); EOS # 0.9 10^3/uL (0.0-0.5); EOS % 10.9 % (0.0-3.0); HEMATOCRIT 40.1 % (42.0-52.0); HEMOGLOBIN 13.1 g/dl (13.5-17.5); LYMPH # 2.1 10^3/uL (1.5-5.0); LYMPH % 25.3 % (24.0-44.0); MEAN CORPUSCULAR HEMOGLOBIN 28.5 pg (27.0-33.0); MEAN CORPUSCULAR HGB CONC 32.7 g/dl (32.0-36.5); MEAN CORPUSCULAR VOLUME 87.4 fl (80.0-96.0); MONO # 0.8 10^3/uL (0.0-0.8); MONO % 9.4 % (2.0-8.0); NEUTROPHILS # 4.3 10^3/uL (1.5-8.5); NEUTROPHILS % 52.9 % (36.0-66.0); PLATELET COUNT, AUTOMATED 332 10^3/uL (150-450); RED BLOOD COUNT 4.59 10^6/uL (4.30-6.10); WHITE BLOOD COUNT 8.2 10^3/uL (4.0-10.0)
[2022-01-20 13:48] LABS: HEMOGLOBIN A1c 9.4 %
[2022-01-20 14:09] LABS: ALBUMIN 3.9 GM/DL (3.2-5.2); ALT/SGPT 25 U/L (12-78); BILIRUBIN,TOTAL 0.3 MG/DL (0.2-1.0); BLOOD UREA NITROGEN 25 MG/DL (7-18); CALCIUM LEVEL 9.4 MG/DL (8.8-10.2); CARBON DIOXIDE LEVEL 30 MEQ/L (21-32); CHLORIDE LEVEL 101 MEQ/L (98-107); CHOLESTEROL LEVEL 214 MG/DL (<200); CHOLESTEROL RISK RATIO 4.196 (<5); CREATININE FOR GFR 1.09 MG/DL (0.70-1.30); FREE T4 0.79 NG/DL (0.76-1.46); GLOMERULAR FILTRATION RATE > 60.0 (>42); GLUCOSE, FASTING 180 MG/DL (70-100); HDL CHOLESTEROL 51 MG/DL (>40); LDL CHOLESTEROL 116 MG/DL (<100); NON-HDL-C 163 MG/DL; POTASSIUM SERUM 4.9 MEQ/L (3.5-5.1); SODIUM LEVEL 138 MEQ/L (136-145); TOTAL PROTEIN 6.9 GM/DL (6.4-8.2); TRIGLYCERIDES LEVEL 235 MG/DL (<150)
[2022-01-20 14:14] LABS: TOTAL 25(OH) VITAMIN D 27.6 NG/ML (30.0-100.0)
== END ==
LOC: M PLALAB 09:54
PROVIDERS: ATTEND Physician Assistant
DX: E11.9 Type 2 diabetes mellitus without complications (principal); I10 Essential (primary) hypertension; E78.2 Mixed hyperlipidemia; E55.9 Vitamin D deficiency, unspecified; Z79.899 Other long term (current) drug therapy

== ENCOUNTER → 2022-04-17 | Outpatient (CLI) | payer MEDICARE, OTHER | LOC: M PLALAB 09:46 | PROVIDERS: ATTEND Nurse Practitioner Women's Health | DX: R97.20 Elevated prostate specific antigen [PSA] (principal) ==

== ENCOUNTER → 2022-07-04 | Outpatient (CLI) | payer MEDICARE, OTHER ==
[2022-07-04 18:50] LABS: HEMOGLOBIN A1c 10.3 %
[2022-07-04 19:15] LABS: ALBUMIN 3.5 GM/DL (3.2-5.2); ALT/SGPT 31 U/L (12-78); BILIRUBIN,TOTAL 0.2 MG/DL (0.2-1.0); BLOOD UREA NITROGEN 21 MG/DL (7-18); CARBON DIOXIDE LEVEL 30 MEQ/L (21-32); CHLORIDE LEVEL 100 MEQ/L (98-107); CHOLESTEROL LEVEL 180 MG/DL (<200); CHOLESTEROL RISK RATIO 4.864 (<5); CREATININE FOR GFR 1.19 MG/DL (0.70-1.30); GLOMERULAR FILTRATION RATE > 60.0 (>42); GLUCOSE, FASTING 127 MG/DL (70-100); HDL CHOLESTEROL 37 MG/DL (>40); LDL CHOLESTEROL 85 MG/DL (<100); NON-HDL-C 143 MG/DL; POTASSIUM SERUM 5.3 MEQ/L (3.5-5.1); SODIUM LEVEL 136 MEQ/L (136-145); TOTAL PROTEIN 6.9 GM/DL (6.4-8.2); TRIGLYCERIDES LEVEL 291 MG/DL (<150)
== END ==
LOC: M PLALAB 15:47
PROVIDERS: ATTEND Physician Assistant
DX: E78.2 Mixed hyperlipidemia (principal); E11.9 Type 2 diabetes mellitus without complications

== ENCOUNTER → 2022-11-08 | Outpatient (CLI) | payer MEDICARE, OTHER | LOC: M PLALAB 10:20 | PROVIDERS: ATTEND Nurse Practitioner Women's Health | DX: R97.20 Elevated prostate specific antigen [PSA] (principal) ==

== ENCOUNTER → 2022-11-09 | Outpatient (CLI) | payer MEDICARE, OTHER ==
[2022-11-09 11:27] LABS: HEMOGLOBIN A1c 7.4 % (4.0-6.0)
[2022-11-09 11:36] LABS: CREATININE, URINE 52.4 MG/DL; MALB URINE SIEMENS < 3.0 MG/DL; MAU/CREAT RATIO 5.7 MCG/MG (0.0-30.0)
[2022-11-09 11:37] LABS: ALBUMIN 3.9 G/DL (3.2-5.2); ALKALINE PHOSPHATASE 126 U/L (46-116); ALT/SGPT 20 U/L (7.0-40); AST/SGOT 26 U/L (<34); BILIRUBIN,TOTAL 0.4 MG/DL (0.3-1.2); BLOOD UREA NITROGEN 24 MG/DL (9-23); CALCIUM LEVEL 9.9 MG/DL (8.3-10.6); CARBON DIOXIDE LEVEL 32 MMOL/L (20-31); CHLORIDE LEVEL 99 MMOL/L (98-107); CREATININE FOR GFR 1.02 MG/DL (0.70-1.30); GLOMERULAR FILTRATION RATE > 60.0 (>42); GLUCOSE, FASTING 157 MG/DL (74-106); POTASSIUM SERUM 4.4 MMOL/L (3.5-5.1); SODIUM LEVEL 137 MMOL/L (136-145); TOTAL PROTEIN 6.9 G/DL (5.7-8.2)
== END ==
LOC: M PLALAB 09:01
PROVIDERS: ATTEND Physician Assistant
DX: E11.9 Type 2 diabetes mellitus without complications (principal)

== ENCOUNTER → 2023-02-09 | Outpatient (CLI) | payer MEDICARE, OTHER ==
[2023-02-09 13:19] LABS: BASO # 0.1 10^3/uL (0.0-0.2); BASO % 0.9 % (0.0-1.0); EOS # 0.5 10^3/uL (0.0-0.5); EOS % 5.8 % (0.0-3.0); HEMATOCRIT 42.5 % (42.0-52.0); HEMOGLOBIN 13.9 g/dl (13.5-17.5); LYMPH # 2.2 10^3/uL (1.5-5.0); LYMPH % 23.8 % (24.0-44.0); MEAN CORPUSCULAR HEMOGLOBIN 30.5 pg (27.0-33.0); MEAN CORPUSCULAR HGB CONC 32.7 g/dl (32.0-36.5); MEAN CORPUSCULAR VOLUME 93.4 fl (80.0-96.0); MONO # 0.8 10^3/uL (0.0-0.8); MONO % 8.4 % (2.0-8.0); NEUTROPHILS # 5.7 10^3/uL (1.5-8.5); NEUTROPHILS % 60.8 % (36.0-66.0); PLATELET COUNT, AUTOMATED 340 10^3/uL (150-450); RED BLOOD COUNT 4.55 10^6/uL (4.30-6.10); WHITE BLOOD COUNT 9.3 10^3/uL (4.0-10.0)
[2023-02-09 13:35] LABS: HEMOGLOBIN A1c 7.2 % (4.0-6.0)
[2023-02-09 13:53] LABS: VITAMIN B12 LEVEL 548 PG/ML (211-911)
[2023-02-09 13:54] LABS: ALBUMIN 3.8 G/DL (3.2-5.2); ALKALINE PHOSPHATASE 107 U/L (46-116); ALT/SGPT 21 U/L (7.0-40); AST/SGOT 26 U/L (<34); BILIRUBIN,TOTAL 0.5 MG/DL (0.3-1.2); BLOOD UREA NITROGEN 19 MG/DL (9-23); CALCIUM LEVEL 9.2 MG/DL (8.3-10.6); CARBON DIOXIDE LEVEL 31 MMOL/L (20-31); CHLORIDE LEVEL 100 MMOL/L (98-107); CHOLESTEROL LEVEL 181 MG/DL (<200); CHOLESTEROL RISK RATIO 3.53 (<5); CREATININE FOR GFR 1.01 MG/DL (0.70-1.30); GLOMERULAR FILTRATION RATE > 60.0 (>42); GLUCOSE, FASTING 99 MG/DL (74-106); HDL CHOLESTEROL 51.2 MG/DL (>40); IRON (FE) 78 UG/DL (65-175); LDL CHOLESTEROL 90.4 MG/DL (<100); NON-HDL-C 129.8 MG/DL; POTASSIUM SERUM 4.6 MMOL/L (3.5-5.1); SODIUM LEVEL 138 MMOL/L (136-145); TOTAL PROTEIN 6.7 G/DL (5.7-8.2); TRIGLYCERIDES LEVEL 197 MG/DL (<150)
== END ==
LOC: M PLALAB 11:53
PROVIDERS: ATTEND Physician Assistant
DX: R53.83 Other fatigue (principal); E11.9 Type 2 diabetes mellitus without complications

== ENCOUNTER → 2023-11-21 | Outpatient (CLI) | payer MEDICARE, OTHER ==
[~2023-11-21] MED LIST changes: +GLIP5TAB17 PO; -GLIP5TAB8 PO; -ROSU20TA5 PO; +ROSU20TA61 PO
== END ==
LOC: M PLALAB 13:25
PROVIDERS: ATTEND Nurse Practitioner Women's Health
DX: R97.20 Elevated prostate specific antigen [PSA] (principal)

== ENCOUNTER → 2023-11-30 | Outpatient (CLI) | payer MEDICARE, OTHER ==
[2023-11-30 13:45] LABS: BASO # 0.1 10^3/uL (0.0-0.2); BASO % 0.7 % (0.0-1.0); EOS # 0.9 10^3/uL (0.0-0.5); EOS % 9.1 % (0.0-3.0); HEMATOCRIT 42.7 % (42.0-52.0); LYMPH # 2.5 10^3/uL (1.5-5.0); LYMPH % 25.9 % (24.0-44.0); MEAN CORPUSCULAR HGB CONC 32.8 g/dl (32.0-36.5); MEAN CORPUSCULAR VOLUME 91.6 fl (80.0-96.0); MONO # 0.9 10^3/uL (0.0-0.8); MONO % 9.5 % (2.0-8.0); NEUTROPHILS # 5.2 10^3/uL (1.5-8.5); NEUTROPHILS % 54.4 % (36.0-66.0); PLATELET COUNT, AUTOMATED 313 10^3/uL (150-450); RED BLOOD COUNT 4.66 10^6/uL (4.30-6.10); WHITE BLOOD COUNT 9.6 10^3/uL (4.0-10.0)
[2023-11-30 13:56] LABS: HEMOGLOBIN A1c 7.3 % (4.0-6.0)
[2023-11-30 14:13] LABS: MAU/CREAT RATIO 4.4 MCG/MG (0.0-30.0)
[2023-11-30 14:15] LABS: ALBUMIN 4.1 G/DL (3.2-5.2); ALKALINE PHOSPHATASE 117 U/L (46-116); ALT/SGPT 29 U/L (7.0-40); AST/SGOT 24 U/L (<34); BILIRUBIN,TOTAL 0.4 MG/DL (0.3-1.2); BLOOD UREA NITROGEN 21 MG/DL (9-23); CALCIUM LEVEL 9.7 MG/DL (8.3-10.6); CARBON DIOXIDE LEVEL 33 MMOL/L (20-31); CHLORIDE LEVEL 103 MMOL/L (98-107); CHOLESTEROL LEVEL 110 MG/DL (<200); CHOLESTEROL RISK RATIO 2.41 (<5); CREATININE FOR GFR 1.16 MG/DL (0.70-1.30); GLOMERULAR FILTRATION RATE > 60.0 (>42); GLUCOSE, FASTING 161 MG/DL (74-106); HDL CHOLESTEROL 45.5 MG/DL (>40); LDL CHOLESTEROL 35.1 MG/DL (<100); NON-HDL-C 64.5 MG/DL; POTASSIUM SERUM 4.7 MMOL/L (3.5-5.1); SODIUM LEVEL 139 MMOL/L (136-145); TRIGLYCERIDES LEVEL 147 MG/DL (<150)
[2023-11-30 14:17] LABS: TOTAL 25(OH) VITAMIN D 44.1 NG/ML (20.0-100.0)
== END ==
LOC: M PLALAB 10:17
PROVIDERS: ATTEND Physician Assistant
DX: R05.3 Chronic cough (principal); E11.9 Type 2 diabetes mellitus without complications; E55.9 Vitamin D deficiency, unspecified; E78.2 Mixed hyperlipidemia; I10 Essential (primary) hypertension

== ENCOUNTER → 2024-06-05 | Outpatient (CLI) | payer MEDICARE, OTHER ==
[2024-06-05 14:34] LABS: BASO # 0.1 10^3/uL (0.0-0.2); BASO % 0.8 % (0.0-1.0); EOS % 10.7 % (0.0-3.0); HEMATOCRIT 44.6 % (42.0-52.0); HEMOGLOBIN 14.6 g/dl (13.5-17.5); LYMPH # 2.5 10^3/uL (1.5-5.0); LYMPH % 27.6 % (24.0-44.0); MEAN CORPUSCULAR HEMOGLOBIN 30.6 pg (27.0-33.0); MEAN CORPUSCULAR HGB CONC 32.7 g/dl (32.0-36.5); MEAN CORPUSCULAR VOLUME 93.5 fl (80.0-96.0); MONO # 0.9 10^3/uL (0.0-0.8); MONO % 9.8 % (2.0-8.0); NEUTROPHILS # 4.6 10^3/uL (1.5-8.5); NEUTROPHILS % 50.7 % (36.0-66.0); PLATELET COUNT, AUTOMATED 305 10^3/uL (150-450); RED BLOOD COUNT 4.77 10^6/uL (4.30-6.10)
[2024-06-05 14:59] LABS: HEMOGLOBIN A1c 7.5 % (4.0-6.0)
[2024-06-05 15:14] LABS: ALBUMIN 4.3 G/DL (3.2-5.2); ALKALINE PHOSPHATASE 104 U/L (46-116); ALT/SGPT 17 U/L (7.0-40); AST/SGOT 23 U/L (<34); BILIRUBIN,TOTAL 0.4 MG/DL (0.3-1.2); BLOOD UREA NITROGEN 23 MG/DL (9-23); CALCIUM LEVEL 10.5 MG/DL (8.3-10.6); CARBON DIOXIDE LEVEL 30 MMOL/L (20-31); CHLORIDE LEVEL 102 MMOL/L (98-107); CREATININE FOR GFR 1.04 MG/DL (0.70-1.30); GLOMERULAR FILTRATION RATE > 60.0 (>42); GLUCOSE, FASTING 89 MG/DL (74-106); POTASSIUM SERUM 4.9 MMOL/L (3.5-5.1); SODIUM LEVEL 138 MMOL/L (136-145); TOTAL PROTEIN 7.3 G/DL (5.7-8.2)
== END ==
LOC: M PLALAB 10:37
PROVIDERS: ATTEND Physician Assistant
DX: Z00.00 Encounter for general adult medical examination without abnormal findings (principal); E11.9 Type 2 diabetes mellitus without complications; R97.20 Elevated prostate specific antigen [PSA]; Z12.5 Encounter for screening for malignant neoplasm of prostate

== ENCOUNTER → 2024-06-13 | Outpatient (REF) | LOC: M PLAIMG 10:35 | PROVIDERS: ATTEND Internal Medicine | DX: M19.041 Primary osteoarthritis, right hand (principal); M19.042 Primary osteoarthritis, left hand; M25.541 Pain in joints of right hand; M25.542 Pain in joints of left hand ==

== ENCOUNTER → 2024-12-02 | Outpatient (CLI) | payer MEDICARE, OTHER ==
[~2024-12-02] MED LIST changes: -ROSU20TA61 PO; +ROSU20TA86 PO
[2024-12-02 15:30] LABS: HEMOGLOBIN A1c 6.6 % (4.0-6.0)
== END ==
LOC: M PLALAB 09:56
PROVIDERS: ATTEND Student in an Organized Health Care Education/Training Program
DX: E11.9 Type 2 diabetes mellitus without complications (principal)

== ENCOUNTER → 2025-06-09 | Outpatient (REF) | payer MEDICARE, OTHER | LOC: M SFHCPLAZ 10:14 | PROVIDERS: ATTEND Family Medicine | DX: N40.0 Benign prostatic hyperplasia without lower urinary tract symptoms (principal); E11.9 Type 2 diabetes mellitus without complications ==

== ENCOUNTER → 2025-06-09 | Outpatient (CLI) | payer MEDICARE, OTHER ==
[2025-06-09 14:17] LABS: PLATELET COUNT, AUTOMATED 322 10^3/uL (150-450)
[2025-06-09 14:33] LABS: ESTIMATED AVERAGE GLUCOSE 192.0 MG/DL (60-110)
[2025-06-09 14:49] LABS: CREATININE, URINE 57.5 MG/DL; MALB URINE SIEMENS < 3.0 MG/L
[2025-06-09 14:51] LABS: ALT/SGPT 23.0 U/L (7.0-40); AST/SGOT 26.0 U/L (<34); CALCIUM LEVEL 9.8 MG/DL (8.3-10.6); CARBON DIOXIDE LEVEL 31.0 MMOL/L (20-31); CHLORIDE LEVEL 97.0 MMOL/L (98-107); CHOLESTEROL LEVEL 96.0 MG/DL (<200); CHOLESTEROL RISK RATIO 2.1 (<5); CREATININE FOR GFR 1.09 MG/DL (0.70-1.30); GLOMERULAR FILTRATION RATE 71.2 (>42); LDL CHOLESTEROL 28.8 MG/DL (<100); NON-HDL-C 50.4 MG/DL; POTASSIUM SERUM 4.6 MMOL/L (3.5-5.1); PSA SCREENING 1.39 NG/ML (< 4.00); SODIUM LEVEL 138.0 MMOL/L (136-145); TRIGLYCERIDES LEVEL 108.0 MG/DL (<150)
== END ==
LOC: M PLALAB 10:38
PROVIDERS: ATTEND Family Medicine
DX: E11.9 Type 2 diabetes mellitus without complications (principal); N40.0 Benign prostatic hyperplasia without lower urinary tract symptoms; Z12.5 Encounter for screening for malignant neoplasm of prostate
CPT/HCPCS: 36415; 80053; 80061; 82043; 83036; 85027; G0103